=== PATIENT | male | born 1945 | race African-American/Black ===

== ENCOUNTER 2021-01-20 14:20 | Inpatient (IN) | payer OTHER, MEDICARE, SELFPAY ==
--- NOTE | ~2021-01-20 | CT_ITS ---
EXAMINATION: CT ABDOMEN AND PELVIS WITH CONTRAST CLINICAL INFORMATION: Upper abdominal pain, vomiting and constipation. COMPARISON: None TECHNIQUE: Multidetector volumetric images were obtained from the superior aspect of the liver through the pubic symphysis following administration 85 mL of Omnipaque 350 intravenous contrast. Sagittal and coronal reformatted images were obtained on the technologist's workstation. Oral contrast: No This CT examination was performed using dose optimization techniques as appropriate, variously including the following: *Automated exposure control *Adjustment of mA and/or kV according to patient size (this includes techniques or standardized protocols for targeted exams where dose is matched to indication/reason for exam; i.e. extremities or head) *Use of iterative reconstruction technique DLP: 274 mGy-cm FINDINGS: LUNG BASES: The lung bases are clear. The heart size is normal. LIVER, GALLBLADDER, AND BILIARY TREE: The liver is normal in size, shape, and diffusely attenuated. There is a 8 mm hypodensity segment 4A. No additional lesions seen. There is no intrahepatic ductal dilatation. Biliary ductal dilatation is present. The gallbladder is unremarkable with no evidence of radiopaque gallstones, gallbladder wall thickening, or obvious pericholecystic inflammatory changes. PANCREAS: There is a large cystic lesion with septations a multicystic lesion in the body of the pancreas. The lesion measures 5.9 x 3.5 cm on axial image 32/3 and 4.2 cm on sagittal Image 42/6 dilated pancreatic duct measuring 6 mm. There are small peripancreatic and retroperitoneal lymph nodes.. SPLEEN: Unremarkable. ADRENAL GLANDS: Unremarkable. KIDNEYS AND URETERS: The kidneys are normal in size, shape, and attenuation. No hydronephrosis, hydroureter, or calculi seen. No perinephric stranding. BLADDER: Unremarkable. GASTROINTESTINAL TRACT: There is scattered stool and gas seen throughout the colon without significant distention. The small bowel loops are normal caliber. Appendix is not visualized. No free air or free fluid seen. ABDOMINAL WALL: No significant hernia is appreciated. LYMPH NODES: There are small retroperitoneal and and periceliac artery lymph nodes measuring less than 5 mm in short axis. VASCULAR: There are atherosclerotic changes of abdominal aorta without aneurysmal dilatation. PELVIC VISCERA: The prostate gland is heterogeneous and significantly enlarged extending into the base of bladder. OSSEOUS STRUCTURES: The agent disc changes L2-L3 through L5-S1 disc levels with spondylosis is noted. There is vacuum disc phenomena L4-L5 and L5-S1 disc levels. No lytic lesion seen. CT/CT abdomen pelvis w con IMPRESSION: Large cystic lesion in the body the pancreas suspicious for a cystic pancreatic neoplasm. Differential diagnoses includes large pseudocyst if patient history of alcoholism. No ventral peripancreatic fluid seen. There is distal pancreatic ductal dilatation measuring 6 mm. There are small shotty lymph nodes in the retroperitoneum. Small hypodense liver lesion. Mild attenuation of liver likely hepatic steatosis.
[2021-01-20 14:23] VITALS: BP 138/84; PULSE 94; O2SAT 97
[2021-01-20 14:25] VITALS: BMI 21.6
[2021-01-20 14:36] VITALS: BP 140/82; PULSE 91; RESP 17; TEMP 37.4; O2SAT 99
--- NOTE | 2021-01-20 14:43 | ECG_ITS ---
Test Reason : ABDOMINAL PAIN Blood Pressure : / mmHG Vent. Rate : 080 BPM Atrial Rate : 080 BPM P-R Int : 156 ms QRS Dur : 070 ms QT Int : 374 ms P-R-T Axes : 077 053 076 degrees QTc Int : 431 ms Normal sinus rhythm with sinus arrhythmia Normal ECG When compared with ECG of 08-JAN-2020 11:58, Premature atrial complexes are no longer Present Vent. rate has decreased BY 45 BPM Referred By: Karen Casillas Electronically Signed By:LEYLA CALIX
--- NOTE | 2021-01-20 14:44 | ED.ABDPAIN ---
HPI - Abdominal Pain General Chief Complaint: Abdominal Pain Stated Complaint: abd pain Time Seen by Provider: 01/20/21 14:34 Source: EMS Mode of arrival: EMS Limitations: no limitations History of Present Illness HPI narrative: 75-year-old male with a past medical history of billroth surgery, s/p PUD w/ large bleeding ulcer 01/12/20 requiring cauterization (admit for hemorrhagic shock requiring transfusion/pressors) here with complaints of acute on chronic abdominal pain for 4 months. Patient tells me he has been able to eat very little. He has no appetite. He has lost 50 lb. He denies any vomiting. No fevers or chills. He has had some constipation. No diarrhea. No black or bloody stools. He lives alone and for the past 2 days he has been very weak and tired unable to care for himself. [facility] been [facility] to get an [facility]. He thinks about 6 months ago he was in a short-term rehab and was prescribed a stimulant which did improve his appetite he was able to gain about 20 lb. He does not have of this medication left. Related Data Home Medications Medication Instructions Recorded Confirmed No Known Home Meds 01/20/21 01/20/21 Allergies Allergy/AdvReac Type Severity Reaction Status Date / Time Penicillins [PENICILLINS] Allergy Intermediate SWELLING Unverified 02/25/20 17:41 lisinopril [LISINOPRIL] Allergy Unknown ANGIOEDEMA Unverified 02/25/20 17:41 Review of Systems Review of Systems Yes all other systems are reviewed and are negative Constitutional: Reports no additional constitutional complaints, Denies body ache(s), Denies chills, Denies fever(s), Denies headache(s), Reports weakness and Reports weight loss Eyes: Reports no additional eye complaints and Denies change in vision Reports system reviewed and no additional complaints, except as documented, Denies dizziness, Denies headache(s), Denies nasal congestion, Denies nasal discharge and Denies neck pain Cardiovascular: Reports no additional cardiovascular complaints, Denies chest pain, Denies leg edema and Denies dyspnea Respiratory: Reports no additional respiratory complaints, Denies cough and Denies dyspnea Gastrointestinal: Reports no additional gastrointestinal complaints, Reports abdominal pain, Denies diarrhea, Reports nausea and Denies vomiting Genitourinary: Denies urinary incontinence Musculoskeletal: Reports no additional musculoskeletal complaints, Denies back pain, Denies arthralgias, Denies joint swelling, Denies neck pain, Denies numbness and Denies tingling Skin/Breast: Reports system reviewed and no additional complaints, except as docu and Denies rash Reports system reviewed and no additional complaints, except as documented, Denies Abnormal speech present, Denies dizziness, Denies headache(s), Denies numbness, Denies tingling and Reports weakness Physical Exam Vital Signs: Vital Signs: Last Vital Signs Temp 98.7 F 01/20/21 19:07 Pulse 73 01/20/21 19:07 Resp 16 01/20/21 19:10 BP 132/83 01/20/21 19:07 Pulse Ox 98 01/20/21 19:07 Body Mass Index 21.6 Const: Other: patricia thin appearing, disheveled, in pain General: cooperative Orientation/consciousness: patient oriented x3 Limitations: no limitations HENMT: Head: Yes normal to inspection Ears: hearing grossly normal bilaterally General nose exam: Normal external nose present Face and sinus: Yes normal facial exam Mouth: Normal oral and palatal mucosa present Throat: Yes posterior oropharynx normal Eyes: General: appearance normal, both eyes and all related structures Pupils: Equal, round and reactive pupils present Neck: Neck: Yes normal visual inspection Chest: Chest palpation & inspection: normal inspection of the chest Resp: Effort & Inspection: normal respiratory effort Auscultation: clear to auscultation bilaterally Cardio: Rate: regular rate Rhythm: regular rhythm Peripheral pulses: Peripheral pulses 2+ throughout GI: Inspection: Yes normal to inspection Palpation (GI): Soft to palpation, Tenderness to palpation present (GI) in the epigastrum; Negative for with no rebound tenderness and no guarding Auscultation: normal bowel sounds Back/Spine/Pelvis: Thoracic/Lumbar Spine: thoracic and lumbar spine normal to inspection Skin: General skin exam: no rashes or lesions noted Neuro: General: patient oriented x3, moves all extremities, no focal motor deficits and normal sensation to monofilament Cranial nerves: Yes Equal, round and reactive pupils present Cognition (Neuro): normal cognition Speech: No Abnormal speech present Extrem: General: Yes normal to inspection Course Course Course Narrative: 75-year-old male here with complaints of acute on chronic abdominal pain for 4 months with weight loss and nausea and very poor p.o. intake now feeling very weak and unable to care for self at home. Will need labs, UA, EKG, CT 1930-CT shows Large cystic lesion in the body the pancreas suspicious for a cystic pancreatic neoplasm. Differential diagnoses includes large pseudocyst if patient history of alcoholism. No ventral peripancreatic fluid seen. There is distal pancreatic ductal dilatation measuring 6 mm. ? There are small shotty lymph nodes in the retroperitoneum. ? Small hypodense liver lesion. Mild attenuation of liver likely hepatic steatosis. Discussed patient with Dr. Matt from GI. The patient does have a former history of alcohol abuse. He tells me that for approximately 10 years he drained about 16 oz of beer daily. He has been sober for more than 1 year. She recommended adding on CEA, CA 19-9. Will consult on the patient. Discussed with Dr. Dueñas from Medicine who will admit the patient. MDM - Abdominal Pain Medical Records Attestation: I reviewed the patient's medical records. Lab Data Attestation: I reviewed the patient's lab results. Result diagrams: 01/20/21 15:43 01/20/21 15:43 Labs: Lab Results 01/20/21 01/20/21 01/20/21 Range/Units 15:42 15:43 15:43 WBC 12.5 H (4.8-10.8) X10*3/uL RBC 4.77 (4.60-5.80) X10*6/uL Hgb 14.3 (14.0-18.0) g/dl Hct 44.1 (42-52) % MCV 92.5 (80-98) fL MCH 30.0 (27.0-33.0) pg MCHC 32.4 (31.0-36.0) g/dl RDW 14.0 (11.0-16.0) % Plt Count 269 (160-400) X10*3/uL MPV 9.5 (9.4-12.4) fL Immature Gran % (Auto) 0.5 H (0.0-0.4) % Neut % (Auto) 86.5 H (45-73) % Lymph % (Auto) 7.3 L (20-40) % [place] % (Auto) 5.2 (2-11) % Eos % (Auto) 0.3 (0-4) % Baso % (Auto) 0.2 (0-2) % Lymph # (Auto) 0.9 L (1.2-4.9) X10*3/uL [place] # (Auto) 0.7 (0.1-1.2) X10*3/uL Eos # (Auto) 0.0 (0.0-0.4) X10*3/uL Baso # (Auto) 0.0 (0.0-0.2) X10*3/uL Abs Immat Gran (auto) 0.06 H (0.00-0.03) X10*3/uL Absolute Neuts (auto) 10.8 H (2.0-8.3) X10*3/uL Absolute Nucleated RBC 0.000 (0.0-0.012) X10*3/uL Nucleated RBC % (auto) 0.0 (0.0-0.2) /100WBC PT 11.9 (9.9-13.0) SEC INR 1.0 (0.9-1.1) Sodium (135-145) mmol/L Potassium (3.3-5.1) mmol/L Chloride (96-108) mmol/L Carbon Dioxide (22-29) mmol/L Anion Gap (12-20) BUN (9-16) mg/dL Creatinine (0.5-1.4) mg/dL Estim Creat Clear Calc Estimated GFR Random Glucose (60-115) mg/dL Lactic Acid 1.0 (0.5-2.0) mmol/L Calcium (8.4-10.2) mg/dL Magnesium (1.6-2.6) mg/dL Total Bilirubin (0.0-1.0) mg/dL Direct Bilirubin (0.0-0.5) mg/dL AST (5-37) U/L ALT (0-40) U/L Alkaline Phosphatase (39-117) U/L Total Creatine Kinase (38-174) U/L Troponin I High Sens (<3.5-35.0) ng/L Total Protein (6.5-8.0) g/dL Albumin (3.5-5.0) g/dL Lipase (8-78) U/L Urine Color Urine Appearance Urine pH (5.0-8.0) Ur Specific [place] (1.005-1.025) Urine Protein (NEG-TRACE) MG/DL Urine Glucose (UA) (NEG) MG/DL Urine Ketones (NEG) MG/DL Urine Blood (NEG) Urine Nitrite (NEG) Ur Leukocyte Esterase (NEG) 01/20/21 01/20/21 01/20/21 Range/Units 15:43 15:43 15:43 WBC (4.8-10.8) X10*3/uL RBC (4.60-5.80) X10*6/uL Hgb (14.0-18.0) g/dl Hct (42-52) % MCV (80-98) fL MCH (27.0-33.0) pg MCHC (31.0-36.0) g/dl RDW (11.0-16.0) % Plt Count (160-400) X10*3/uL MPV (9.4-12.4) fL Immature Gran % (Auto) (0.0-0.4) % Neut % (Auto) (45-73) % Lymph % (Auto) (20-40) % [place] % (Auto) (2-11) % Eos % (Auto) (0-4) % Baso % (Auto) (0-2) % Lymph # (Auto) (1.2-4.9) X10*3/uL [place] # (Auto) (0.1-1.2) X10*3/uL Eos # (Auto) (0.0-0.4) X10*3/uL Baso # (Auto) (0.0-0.2) X10*3/uL Abs Immat Gran (auto) (0.00-0.03) X10*3/uL Absolute Neuts (auto) (2.0-8.3) X10*3/uL Absolute Nucleated RBC (0.0-0.012) X10*3/uL Nucleated RBC % (auto) (0.0-0.2) /100WBC PT (9.9-13.0) SEC INR (0.9-1.1) Sodium 144 (135-145) mmol/L Potassium 3.6 (3.3-5.1) mmol/L Chloride 103 (96-108) mmol/L Carbon Dioxide 32 H (22-29) mmol/L Anion Gap 13 (12-20) BUN 8 L (9-16) mg/dL Creatinine 0.71 (0.5-1.4) mg/dL Estim Creat Clear Calc 89.3 Estimated GFR > 60 Random Glucose 104 (60-115) mg/dL Lactic Acid (0.5-2.0) mmol/L Calcium 8.8 (8.4-10.2) mg/dL Magnesium 2.1 (1.6-2.6) mg/dL Total Bilirubin 0.6 (0.0-1.0) mg/dL Direct Bilirubin 0.4 (0.0-0.5) mg/dL AST 11 (5-37) U/L ALT 9 (0-40) U/L Alkaline Phosphatase 151 H (39-117) U/L Total Creatine Kinase 22 L (38-174) U/L Troponin I High Sens 5.1 (<3.5-35.0) ng/L Total Protein 6.4 L (6.5-8.0) g/dL Albumin 3.3 L (3.5-5.0) g/dL Lipase < 4 L (8-78) U/L Urine Color Urine Appearance Urine pH (5.0-8.0) Ur Specific [place] (1.005-1.025) Urine Protein (NEG-TRACE) MG/DL Urine Glucose (UA) (NEG) MG/DL Urine Ketones (NEG) MG/DL Urine Blood (NEG) Urine Nitrite (NEG) Ur Leukocyte Esterase (NEG) 01/20/21 Range/Units 19:48 WBC (4.8-10.8) X10*3/uL RBC (4.60-5.80) X10*6/uL Hgb (14.0-18.0) g/dl Hct (42-52) % MCV (80-98) fL MCH (27.0-33.0) pg MCHC (31.0-36.0) g/dl RDW (11.0-16.0) % Plt Count (160-400) X10*3/uL MPV (9.4-12.4) fL Immature Gran % (Auto) (0.0-0.4) % Neut % (Auto) (45-73) % Lymph % (Auto) (20-40) % [place] % (Auto) (2-11) % Eos % (Auto) (0-4) % Baso % (Auto) (0-2) % Lymph # (Auto) (1.2-4.9) X10*3/uL [place] # (Auto) (0.1-1.2) X10*3/uL Eos # (Auto) (0.0-0.4) X10*3/uL Baso # (Auto) (0.0-0.2) X10*3/uL Abs Immat Gran (auto) (0.00-0.03) X10*3/uL Absolute Neuts (auto) (2.0-8.3) X10*3/uL Absolute Nucleated RBC (0.0-0.012) X10*3/uL Nucleated RBC % (auto) (0.0-0.2) /100WBC PT (9.9-13.0) SEC INR (0.9-1.1) Sodium (135-145) mmol/L Potassium (3.3-5.1) mmol/L Chloride (96-108) mmol/L Carbon Dioxide (22-29) mmol/L Anion Gap (12-20) BUN (9-16) mg/dL Creatinine (0.5-1.4) mg/dL Estim Creat Clear Calc Estimated GFR Random Glucose (60-115) mg/dL Lactic Acid (0.5-2.0) mmol/L Calcium (8.4-10.2) mg/dL Magnesium (1.6-2.6) mg/dL Total Bilirubin (0.0-1.0) mg/dL Direct Bilirubin (0.0-0.5) mg/dL AST (5-37) U/L ALT (0-40) U/L Alkaline Phosphatase (39-117) U/L Total Creatine Kinase (38-174) U/L Troponin I High Sens (<3.5-35.0) ng/L Total Protein (6.5-8.0) g/dL Albumin (3.5-5.0) g/dL Lipase (8-78) U/L Urine Color YELLOW Urine Appearance CLEAR Urine pH 7.0 (5.0-8.0) Ur Specific [place] <= 1.005 (1.005-1.025) Urine Protein TRACE (NEG-TRACE) MG/DL Urine Glucose (UA) NEG (NEG) MG/DL Urine Ketones NEG (NEG) MG/DL Urine Blood NEG (NEG) Urine Nitrite NEG (NEG) Ur Leukocyte Esterase NEG (NEG) Imaging Data CT scan - abdomen: Attestation: I personally reviewed and interpreted this imaging study as follows: Radiologist's impression: Large cystic lesion in the body the pancreas suspicious for a cystic pancreatic neoplasm. Differential diagnoses includes large pseudocyst if patient history of alcoholism. No ventral peripancreatic fluid seen. There is distal pancreatic ductal dilatation measuring 6 mm. ? There are small shotty lymph nodes in the retroperitoneum. ? Small hypodense liver lesion. Mild attenuation of liver likely hepatic steatosis. ECG Data Attestation: I personally reviewed and interpreted this ECG as follows: ECG interpretation date: 01/20/21 ECG interpretation time: 15:20 Interpretation: Normal sinus rhythm with a sinus arrhythmia with a rate of 80, normal AK, normal QRS, normal QT Discharge Plan Discharge Clinical Impression: Pancreatic mass Patient Disposition: Admitted As Inpatient Prescriptions: No Action No Known Home Meds RF: 0 PMFSH Past Medical History Attestation statement: The following information was validated with the patient. Source: old records reviewed and nursing notes reviewed Social History Social History Advance Directives: No Advance Directives Information Provided: No
[2021-01-20 15:11] VITALS: BP 140/88; PULSE 84; RESP 16; TEMP 37.1; O2SAT 99
[2021-01-20 15:55] LABS: MANUAL DIFF FLAG NO
[2021-01-20 15:57] LABS: Basophils Percent Auto 0.2 % (0-2); Eosinophils Percent Auto 0.3 % (0-4); Hematocrit 44.1 % (42-52); Hemoglobin 14.3 g/dl (14.0-18.0); Imm Gran Abs Auto 0.06 X10*3/uL (0.00-0.03); Imm Gran Pct Auto 0.5 % (0.0-0.4); Lymphocytes Absolute Auto 0.9 X10*3/uL (1.2-4.9); Lymphocytes Percent Auto 7.3 % (20-40); Mean Corpuscular HGB Conc 32.4 g/dl (31.0-36.0); Mean Corpuscular Volume 92.5 fL (80-98); Mean Platelet Volume 9.5 fL (9.4-12.4); Monocytes Absolute Auto 0.7 X10*3/uL (0.1-1.2); Monocytes Percent Auto 5.2 % (2-11); Neutrophils Absolute Auto 10.8 X10*3/uL (2.0-8.3); Neutrophils Percent Auto 86.5 % (45-73); Platelet Count 269 X10*3/uL (160-400); Red Blood Count 4.77 X10*6/uL (4.60-5.80); White Blood Count 12.5 X10*3/uL (4.8-10.8)
[2021-01-20 16:10] LABS: Prothrombin Time 11.9 SEC (9.9-13.0)
[2021-01-20 16:24] LABS: Alanine Aminotransferase 9 U/L (0-40); Albumin Level 3.3 g/dL (3.5-5.0); Alkaline Phosphatase 151 U/L (39-117); Anion Gap 13 (12-20); Aspartate Amino Transferase 11 U/L (5-37); Bilirubin Direct 0.4 mg/dL (0.0-0.5); Bilirubin Total 0.6 mg/dL (0.0-1.0); Blood Urea Nitrogen 8 mg/dL (9-16); Calcium 8.8 mg/dL (8.4-10.2); Carbon Dioxide 32 mmol/L (22-29); Chloride 103 mmol/L (96-108); Creatinine Clr Calc Pharmacy 89.3; Estimated Glomerular Filt Rate > 60; Glucose Random 104 mg/dL (60-115); Lipase < 4 U/L (8-78); Magnesium 2.1 mg/dL (1.6-2.6); Potassium 3.6 mmol/L (3.3-5.1); Sodium 144 mmol/L (135-145); Total Protein 6.4 g/dL (6.5-8.0)
[2021-01-20 16:26] LABS: Troponin-I High Sensitivity 5.1 ng/L (<3.5-35.0)
[2021-01-20 17:14] VITALS: BP 129/73; PULSE 77; RESP 16; O2SAT 98
[2021-01-20] MEDS: iohexoL 350 MG/ML 100 ML INFUS..BTL 85 ML IV (17:44)
[2021-01-20] MEDS: Morphine Sulfate 4 MG/ML CARTRIDGE IVPUSH (17:49)
[2021-01-20] MEDS: Famotidine/PF 20 MG/2 ML VIAL IVPUSH (17:49)
[2021-01-20 19:07] VITALS: BP 132/83; PULSE 73; RESP 16; TEMP 37.1; O2SAT 98
[2021-01-20 19:10] VITALS: RESP 16
[2021-01-20 20:06] LABS: Glucose Urine UA NEG (NEG); Leukocyte Esterase Urine NEG (NEG); Nitrite Urine NEG (NEG); Specific Gravity - Urine <= 1.005 (1.005-1.025); Urine Blood NEG (NEG); Urine Ketones NEG (NEG); Urine Protein TRACE MG/DL (NEG-TRACE)
[2021-01-20 20:09] LABS: Appearance Urine CLEAR; Color Urine YELLOW
[2021-01-20 21:41] LABS: COVID-19 Test Negative (Negative)
[2021-01-20] MEDS: Sucralfate 1 GM TABLET PO (22:52)
[2021-01-20] MEDS: Omeprazole 40 MG CAPSULE.DR PO (22:52)
[2021-01-20] MEDS: Mirtazapine 30 MG TABLET PO (22:53)
[2021-01-20] MEDS: Heparin Sodium,Porcine 5,000 UNIT/ML VIAL 5000 UNIT SUBCUT (22:53)
[2021-01-21] VITALS (7 sets, daily range): BP systolic 119–163; BP diastolic 68–87; PULSE 68–102; RESP 15–18; TEMP 35.9–37.6; O2SAT 98–100
[2021-01-21] MEDS: oxyCODONE HCl Immed Release 5 MG TABLET PO ×3 (02:24→15:26)
[2021-01-21] MEDS: 0.9 % Sodium Chloride Flush 3 ML SYRINGE IVFLUSH ×3 (02:28→15:27)
[2021-01-21 06:10] LABS: MANUAL DIFF FLAG NO
--- NOTE | 2021-01-21 06:30 | PM.IMHP ---
History of Present Illness Date of Service: 01/20/21 Chief Complaint: No appetite This is a 75-year-old male with no significant past medical history who presents to the hospital with complaints of persistent loss of appetite. Patient reports that he started having loss of appetite for the past 4 months and significant weight loss as a result. Patient reports that he was given appetite stimulant by his PCP, but they were becoming ineffective, he called to have it increase but he did not hear back from his doctor and therefore decided to come to the ED. Patient reports abdominal pain in the epigastric region, feels like tension, 5/10, intermittent, daily, radiating to the back, feels dizzy, also complaining of ED urinary urgency for many years with no changes now. He reports that he lost about 50 lb in the past 4 months but 30 lb in the past 1 month because he did not even have his appetite stimulant. He denies any fever or chills, he denies any chest pain, no shortness of breath, no nausea or vomiting, no diarrhea constipation, no numbness tingling and no lower extremity edema. On arrival to the ED hemodynamically stable with no significant abnormal vitals Labs on arrival are significant for WBC count of 12.5, alk-phos of 151, UA negative. Abdominal pelvic CT shows a large cystic lesion in the body of the pancreas suspicious for cystic pancreatic neoplasm. Differential can also include large pseudocyst. Patient does report history of alcohol abuse but has not drink for 1 month, reports that he was a daily drinker up until one year ago but is now drinks 2 to 3 times a week but stopped about 1 month ago due to the weird taste of alcohol. GI consult to patient will be admitted for further management evaluation Review of Systems Review of Systems: Yes all other systems are reviewed and are negative [facility] Medical History (Updated 01/21/21 @ 06:39 by Jeevan Dueñas MD) Alcohol abuse Hemorrhage of anastomosis due to ulcer Surgical History History of partial gastrectomy Social History Household Members: None Housing: Apartment Do you presently have visiting nurse or other home services: Yes (Saturday for 3 hours. visiting Aide) Patient Tobacco Use Status: Current everyday Tobacco user Tobacco use type: Cigarette Smoked in Last 30 Days: Yes Patient Interested in Nicotine Replacement: Yes Patient Given Instructions on How to Stop Smoking: Yes Date Education Initiated: 01/21/21 Second Hand Smoke Exposure: No Use of substances other than those prescribed or required for medical reasons: Yes Substance Use Type: Marijuana Currently Displaying Signs/Symptoms of Drug Intoxication Withdrawal: No Any prior treatment program specific to substance use: No Have you been hit, kicked, punched, or otherwise hurt by someone within the past year? If so, by whom?: No Do you feel safe in your current relationship?: Yes Is there a partner from a previous relationship who is making you feel unsafe now?: No Are you made to feel afraid or neglected: No Advance Directives: No Advance Directives Information Provided: No Do you have thoughts of harming others: None Do you have a plan to hurt others: No Plan Recently lost weight without trying: No Eating poorly because of decreased appetite: No Nutrition Risks: No Nutritional Risk Meds Allergies Allergy/AdvReac Type Severity Reaction Status Date / Time Penicillins [PENICILLINS] Allergy Intermediate SWELLING Unverified 02/25/20 17:41 lisinopril [LISINOPRIL] Allergy Unknown ANGIOEDEMA Unverified 02/25/20 17:41 Active Medications: Current Medications Generic Name Dose Route Start Last Admin Trade Name Lucie PRN Reason Stop Dose Admin Acetaminophen 650 mg 01/20/21 22:21 Acetaminophen 325 Mg Tablet PO Q6H PRN Pain, Mild (Pain Scale 1-3) Docusate Sodium 100 mg 01/20/21 22:21 Docusate Sodium 100 Mg Capsule PO DAILY PRN Constipation Folic Acid 1 mg 01/21/21 09:00 Folic Acid 1 Mg Tablet PO DAILY LELIA Heparin Sodium (Porcine) 5,000 unit 01/20/21 23:00 01/20/21 22:53 Heparin Sodium,Porcine 5,000 Unit/Ml Vial SUBCUT 5,000 unit Q12H LELIA Administration Mirtazapine 30 mg 01/20/21 22:45 01/20/21 22:53 Mirtazapine 30 Mg Tablet PO 30 mg BEDTIME LELIA Administration Omeprazole 40 mg 01/20/21 22:45 01/20/21 22:52 Omeprazole 40 Mg Capsule.Dr PO 40 mg BID LELIA Administration Ondansetron HCl 4 mg 01/20/21 22:21 Ondansetron Hcl 4 Mg/2 Ml Vial IVPUSH Q8H PRN Nausea and Vomiting Oxycodone HCl 5 mg 01/21/21 01:43 01/21/21 02:24 Oxycodone Hcl Immed Release 5 Mg Tablet PO 5 mg Q6H PRN Administration Pain, Severe (Pain Scale 7-10) Pharmacy Consult 1 each 01/20/21 18:37 Consult Rx Perform Med Rec MISCELLANE ONCE PRN Consult order Sodium Chloride 3 ml 01/21/21 00:00 01/21/21 02:28 0.9 % Sodium Chloride Flush 3 Ml Syringe IVFLUSH 3 ml QSHIFT [facility] Administration Sucralfate 1 gm 01/20/21 22:45 01/20/21 22:52 Sucralfate 1 Gm Tablet PO 1 gm QID [facility] Administration Thiamine HCl 100 mg 01/21/21 09:00 Thiamine Hcl 100 Mg Tablet PO DAILY [facility] Vitamin D 50 mcg 01/21/21 09:00 Cholecalciferol (Vitamin D3) 25 Mcg Tablet PO DAILY [facility] Home Medications Medication Instructions Recorded Confirmed Last Taken Type acetaminophen 500 mg tablet 1,000 mg PO TID 01/20/21 01/20/21 Unknown History cholecalciferol (vitamin D3) 50 50 mcg PO DAILY 01/20/21 01/20/21 Unknown History mcg (2,000 unit) tablet (Vitamin D3) folic acid 1 mg tablet 1 mg PO DAILY 01/20/21 01/20/21 Unknown History magnesium oxide 420 mg tablet 420 mg PO DAILY 01/20/21 01/20/21 Unknown History mirtazapine 30 mg tablet (Remeron) 30 mg PO BEDTIME 01/20/21 01/20/21 Unknown History nicotine 14 mg/24 hr daily 1 patch TRANSDERMAL DAILY 01/20/21 01/20/21 Unknown History transdermal patch omeprazole 20 mg tablet,delayed 40 mg PO BID 01/20/21 01/20/21 Unknown History release sucralfate 1 gram tablet 1 g PO QID 01/20/21 01/20/21 Unknown History thiamine HCl (vitamin B1) 100 mg 100 mg PO DAILY 01/20/21 01/20/21 Unknown History tablet Physical Exam Vital Signs and Narrative: Vital Signs: Last Vital Signs Temp 97.3 F 01/21/21 04:00 Pulse 78 01/21/21 04:00 Resp 15 01/21/21 04:00 BP 130/83 01/21/21 04:00 Pulse Ox 99 01/21/21 04:00 Body Mass Index 21.6 Results Labs CBC and Chem 7: 01/20/21 15:43 01/20/21 15:43 Labs: Laboratory Results - last 24 hr 01/20/21 01/20/21 01/20/21 15:42 15:43 15:43 MCV 92.5 MCH 30.0 MCHC 32.4 RDW 14.0 Plt Count 269 MPV 9.5 Immature Gran % (Auto) 0.5 H Neut % (Auto) 86.5 H Lymph % (Auto) 7.3 L [place] % (Auto) 5.2 Eos % (Auto) 0.3 Baso % (Auto) 0.2 Lymph # (Auto) 0.9 L [place] # (Auto) 0.7 Eos # (Auto) 0.0 Baso # (Auto) 0.0 Abs Immat Gran (auto) 0.06 H Absolute Neuts (auto) 10.8 H Absolute Nucleated RBC 0.000 Nucleated RBC % (auto) 0.0 PT 11.9 INR 1.0 Anion Gap Estim Creat Clear Calc Estimated GFR Random Glucose Lactic Acid 1.0 Calcium Magnesium Total Bilirubin Direct Bilirubin AST ALT Alkaline Phosphatase Total Creatine Kinase Troponin I High Sens Total Protein Albumin Lipase Urine Color Urine Appearance Urine pH Ur Specific [place] Urine Protein Urine Glucose (UA) Urine Ketones Urine Blood Urine Nitrite Ur Leukocyte Esterase COVID-19 ([facility]) COVID-19 Clin Com 01/20/21 01/20/21 01/20/21 15:43 15:43 15:43 MCV MCH MCHC RDW Plt Count MPV Immature Gran % (Auto) Neut % (Auto) Lymph % (Auto) [place] % (Auto) Eos % (Auto) Baso % (Auto) Lymph # (Auto) [place] # (Auto) Eos # (Auto) Baso # (Auto) Abs Immat Gran (auto) Absolute Neuts (auto) Absolute Nucleated RBC Nucleated RBC % (auto) PT INR Anion Gap 13 Estim Creat Clear Calc 89.3 Estimated GFR > 60 Random Glucose 104 Lactic Acid Calcium 8.8 Magnesium 2.1 Total Bilirubin 0.6 Direct Bilirubin 0.4 AST 11 ALT 9 Alkaline Phosphatase 151 H Total Creatine Kinase 22 L Troponin I High Sens 5.1 Total Protein 6.4 L Albumin 3.3 L Lipase < 4 L Urine Color Urine Appearance Urine pH Ur Specific [place] Urine Protein Urine Glucose (UA) Urine Ketones Urine Blood Urine Nitrite Ur Leukocyte Esterase COVID-19 ([facility]) COVID-19 Clin Com 01/20/21 01/20/21 19:48 21:22 MCV MCH MCHC RDW Plt Count MPV Immature Gran % (Auto) Neut % (Auto) Lymph % (Auto) [place] % (Auto) Eos % (Auto) Baso % (Auto) Lymph # (Auto) [place] # (Auto) Eos # (Auto) Baso # (Auto) Abs Immat Gran (auto) Absolute Neuts (auto) Absolute Nucleated RBC Nucleated RBC % (auto) PT INR Anion Gap Estim Creat Clear Calc Estimated GFR Random Glucose Lactic Acid Calcium Magnesium Total Bilirubin Direct Bilirubin AST ALT Alkaline Phosphatase Total Creatine Kinase Troponin I High Sens Total Protein Albumin Lipase Urine Color YELLOW Urine Appearance CLEAR Urine pH 7.0 Ur Specific [place] <= 1.005 Urine Protein TRACE Urine Glucose (UA) NEG Urine Ketones NEG Urine Blood NEG Urine Nitrite NEG Ur Leukocyte Esterase NEG COVID-19 ([facility]) Negative COVID-19 Clin Com See Note ECG Interpretation: Normal sinus rhythm with sinus arrhythmia Imaging Radiologist's Impressions: Impressions Abdomen/Pelvis CT 01/20/21 16:38 IMPRESSION: Large cystic lesion in the body the pancreas suspicious for a cystic pancreatic neoplasm. Differential diagnoses includes large pseudocyst if patient history of alcoholism. No ventral peripancreatic fluid seen. There is distal pancreatic ductal dilatation measuring 6 mm. There are small shotty lymph nodes in the retroperitoneum. Small hypodense liver lesion. Mild attenuation of liver likely hepatic steatosis. 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 # leukocytosis - most likely reactive - patient afebrile, no tachycardia or tachypnea showing other signs of systemic toxicity - unlikely to have pseudocyst - at this time monitor with repeat CBC DVT prophylaxis: Heparin subQ Quality Stroke Does the patient have a stroke diagnosis?: No VTE Prior VTE?: No VTE Risk Level:: Medical - moderate - high VTE Device Contraindication: Treatment Not Indicated VTE Drug Contraindication: N/A - Med Ordered
[2021-01-21 06:51] LABS: Basophils Percent Auto 0.3 % (0-2); Eosinophils Absolute Auto 0.1 X10*3/uL (0.0-0.4); Eosinophils Percent Auto 0.5 % (0-4); Hematocrit 41.7 % (42-52); Hemoglobin 13.4 g/dl (14.0-18.0); Imm Gran Abs Auto 0.07 X10*3/uL (0.00-0.03); Imm Gran Pct Auto 0.5 % (0.0-0.4); Lymphocytes Percent Auto 7.4 % (20-40); Mean Corpuscular HGB Conc 32.1 g/dl (31.0-36.0); Mean Corpuscular Hemoglobin 29.8 pg (27.0-33.0); Mean Corpuscular Volume 92.9 fL (80-98); Monocytes Percent Auto 7.4 % (2-11); Neutrophils Absolute Auto 11.1 X10*3/uL (2.0-8.3); Neutrophils Percent Auto 83.9 % (45-73); Platelet Count 268 X10*3/uL (160-400); Red Blood Count 4.49 X10*6/uL (4.60-5.80); Red Cell Distribution Width 13.9 % (11.0-16.0); White Blood Count 13.2 X10*3/uL (4.8-10.8)
[2021-01-21 06:54] LABS: Anion Gap 17 (12-20); Blood Urea Nitrogen 7 mg/dL (9-16); Calcium 8.4 mg/dL (8.4-10.2); Carbon Dioxide 27 mmol/L (22-29); Chloride 104 mmol/L (96-108); Creatinine Clr Calc Pharmacy 96.1; Estimated Glomerular Filt Rate > 60; Glucose Random 73 mg/dL (60-115); Potassium 3.9 mmol/L (3.3-5.1); Sodium 144 mmol/L (135-145)
[2021-01-21] MEDS: Folic Acid 1 MG TABLET PO (09:12)
[2021-01-21] MEDS: Sucralfate 1 GM TABLET PO ×4 (09:12→20:27)
[2021-01-21] MEDS: Cholecalciferol (Vitamin D3) 25 MCG TABLET 50 MCG PO (09:13)
[2021-01-21] MEDS: Omeprazole 40 MG CAPSULE.DR PO ×2 (09:13→20:27)
[2021-01-21] MEDS: Thiamine HCL 100 MG TABLET PO (09:14)
--- NOTE | 2021-01-21 09:25 | MHC.CM.PN ---
Addendum entered by Margarita Dumas 01/21/21 14:40: CM CONTACTED THE MD TO [facility] TO [facility]. AFTER PTS INFORMATION WAS PROVIDED, CM WAS INFORMED PT IS NOT SERVICE CONNECTED ORIGINALLY UNDERSTOOD. PT DOES USE THE [facility] HOWEVER. PT WOULD NEED TO BE TRANSFERRED USING HIS MEDICARE BENEFITS. Original Note: CM MET WITH PT WHO REPORTS HE LIVES ALONE AND HAS A LEAD GENERATION REPRESENTATIVE THAT COMES EVERY SATURDAY FOR THREE HOURS TO ASSIST WITH LIGHT HOUSEKEEPING, GROCERY SHOPPING, GOING TO THE BANK AND SOME COOKING. PT REPORTS HE HAS A CANE AND A WALKER BUT PRIMARILY USES THE CANE. PT REPORTS HE SEES DR GILMORE AT THE [facility] HOWEVER HE DOES NOT THINK SHE IS TAKING ADEQUATE CARE OF HIM. HE REPORTS HAVING DIFFICULTY REACHING HER SAYING SHE NEVER RETURNS HIS CALLS. PT REPORTS HE HAS BEEN HAVING DIFFICULTY EATING AND HAS BEEN FEELING WEAK. PT REPORTS HE WOULD LIKE TO GO TO STR AT [facility] AT [place]. PT ONLY HAS [employer] LISTED FOR INSURANCE HOWEVER HE REPORTS HE ALSO HAS MEDICARE A. IMM WAS DELIVERED CM WILL MAKE A REFERRAL TO [facility] FOR STR. PT WILL NEED A PT EVAL. TRANSPORT TBD BY DISPOSITION.
--- NOTE | 2021-01-21 10:31 | P.CNGI_ITS ---
History of Present Illness Data of Consult Service Date: 01/21/21 Requesting physician: Jeevan Dueñas Primary Care Provider: Unknown Physician HPI Reason for consult: abd pain, wt loss, abnormal CT scan of pancreas 75 YM [place] [facility] [place] evening with abdominal pain and weight loss. He is followed by Dr Aguero at the [facility] in [place] and [place]. Patient is status post partial gastrectomy for peptic ulcer disease 40 years ago. Pt reports a lack of appetite with wt loss over the past 4 months from 155 to < 100 lbs. He complains of intermittent weakness, dizziness, 5/10 epigastric pain radiating to the back - pain is intermittent and associated with intake of food, orange juice or Hilario-Aid. Patient reports that he was given appetite stimulant by his PCP, but they were becoming ineffective, he called to have it increase but he did not hear back from his doctor and therefore decided to come to the ED.? He reports that he lost about 50 lb in the past 4 months but 30 lb in the past 1 month because he did not have his appetite stimulant. He denies any fever or chills, he denies any chest pain, no shortness of breath, no nausea or vomiting, no diarrhea constipation, no numbness tingling and no lower extremity edema. Patient denies major cardiac or pulmonary problems, loud snoring or sleep apnea Denies being on aspirin or chronic anticoagulation. Patient does report history of heavy alcohol abuse (6 pack of beer daily) and decreased to 1 beer a day for the past few months, and stopped about 1 month ago due to the weird taste of alcohol. Patient denies known family history of colon polyps, colon cancer or other GI malignancies. His sister has breast cancer. 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 and planning to move there in the near future. He has a child care development specialist coming once a week for 3 hrs. He is ( x 3) and has 3 children and 7 grandchildren who live in [place]. ENDOSCOPIC STUDIES: 12/2019 EGD was performed by Dr. Donaldson for upper GI bleeding: EGD showed an anastomotic ulcer and a small hiatal hernia. Ulcer was treated with epinephrine and cauterization with gold probe. Pt reports having an EGD and a Colonoscopy at [facility] within the last 1-2 yrs. On arrival to the ED hemodynamically stable with no significant abnormal vitals Labs on arrival are significant for WBC count of 12.5, alk-phos of 151, UA negative IMAGING STUDIES: 01/20/[address] SCAN SHOWED: LIVER, GALLBLADDER, AND BILIARY TREE: The liver is normal in size, shape, and diffusely attenuated. There is a 8 mm hypodensity segment 4A. No additional lesions seen. There is no intrahepatic ductal dilatation. Biliary ductal dilatation is present. The gallbladder is unremarkable with no evidence of radiopaque gallstones, gallbladder wall thickening, or obvious pericholecystic inflammatory changes.? PANCREAS: There is a large cystic lesion with septations a multicystic lesion in the body of the pancreas. The lesion measures 5.9 x 3.5 cm on axial image 32/3 and 4.2 cm on sagittal Image 42/6 dilated pancreatic duct measuring 6 mm. There are small peripancreatic and retroperitoneal lymph nodes.. GASTROINTESTINAL TRACT: There is scattered stool and gas seen throughout the colon without significant distention. The small bowel loops are normal caliber. Appendix is not visualized. No free air or free fluid seen. LYMPH NODES: There are small retroperitoneal and and periceliac artery lymph nodes measuring less than 5 mm in short axis. IMPRESSION: Large cystic lesion in the body the pancreas suspicious for a cystic pancreatic neoplasm. Differential diagnoses includes large pseudocyst if patient history of alcoholism. No ventral peripancreatic fluid seen. There is distal pancreatic ductal dilatation measuring 6 mm. ? There are small shotty lymph nodes in the retroperitoneum. ? Small hypodense liver lesion. Mild attenuation of liver likely hepatic steatosis. ? Review of Systems Constitutional: Constitutional: Denies fever(s), Denies headache(s) and Reports weight loss Eyes: Eyes: Denies eye discharge and Denies irritation ENT: Reports Normal hearing present, Denies dysphagia, Denies dizziness and Denies headache(s) Cardiovascular: Cardiovascular: Denies chest pain, Denies leg edema and Denies dyspnea on exertion Respiratory: Respiratory: Denies cough and Denies dyspnea on exertion Gastrointestinal: Gastrointestinal: Reports abdominal pain, Denies change in bowel habits, Denies dysphagia, Denies heartburn and Reports other (Decreased appetite) Genitourinary: Genitourinary: Denies dysuria Musculoskeletal: Musculoskeletal: Denies back pain and Denies arthralgias Integumentary/Breasts: Skin/Breast: Denies pruritus, Denies rash and Denies jaundice Neurologic: Reports Normal hearing present, Denies Abnormal speech present, Denies dizziness, Denies headache(s) and Denies seizure-like activity Psychiatric: Psychiatric: Reports anxiety, Reports depression and Denies panic attacks Endocrine: Endocrine: Denies cold intolerance, Denies flushing and Denies heat intolerance Hematologic/Lymphatic: Hematologic/Lymphatic: Denies easy bleeding and Denies easy bruising PMFSH Past Medical History Medical History Alcohol abuse Hemorrhage of anastomosis due to ulcer Surgical History Surgical History History of partial gastrectomy Social History Social History Household Members: Caregiver Housing: Alf Do you presently have visiting nurse or other home services: No Unable to assess alcohol history related to: Unable to respond Patient Tobacco Use Status: Current everyday Tobacco user Tobacco use type: Cigarette Second Hand Smoke Exposure: No Substance Use Type: Marijuana Advance Directives Date on File: 02/01/21 service: Yes Current occupational status: retired [employer] Allergies Allergy/AdvReac Type Severity Reaction Status Date / Time Penicillins [PENICILLINS] Allergy Intermediate SWELLING Verified 02/12/21 06:34 lisinopril [LISINOPRIL] Allergy Unknown ANGIOEDEMA Verified 02/12/21 06:34 Active Medications: Current Medications Generic Name Dose Route Start Last Admin Trade Name Freq PRN Reason Stop Dose Admin Acetaminophen 650 mg 01/20/21 22:21 Acetaminophen 325 Mg Tablet PO Q6H PRN Pain, Mild (Pain Scale 1-3) Docusate Sodium 100 mg 01/20/21 22:21 Docusate Sodium 100 Mg Capsule PO DAILY PRN Constipation Folic Acid 1 mg 01/21/21 09:00 01/21/21 09:12 Folic Acid 1 Mg Tablet PO 1 mg DAILY LELIA Administration Heparin Sodium (Porcine) 5,000 unit 01/20/21 23:00 01/20/21 22:53 Heparin Sodium,Porcine 5,000 Unit/Ml Vial SUBCUT 5,000 unit Q12H LELIA Administration Mirtazapine 30 mg 01/20/21 22:45 01/20/21 22:53 Mirtazapine 30 Mg Tablet PO 30 mg BEDTIME LELIA Administration Omeprazole 40 mg 01/20/21 22:45 01/21/21 09:13 Omeprazole 40 Mg Capsule. PO 40 mg BID LELIA Administration Ondansetron HCl 4 mg 01/20/21 22:21 Ondansetron Hcl 4 Mg/2 Ml Vial IVPUSH Q8H PRN Nausea and Vomiting Oxycodone HCl 5 mg 01/21/21 01:43 01/21/21 09:12 Oxycodone Hcl Immed Release 5 Mg Tablet PO 5 mg Q6H PRN Administration Pain, Severe (Pain Scale 7-10) Pharmacy Consult 1 each 01/20/21 18:37 Consult Rx Perform Med Rec MISCELLANE ONCE PRN Consult order Sodium Chloride 3 ml 01/21/21 00:00 01/21/21 09:12 0.9 % Sodium Chloride Flush 3 Ml Syringe IVFLUSH 3 ml QSHIFT [facility] Administration Sucralfate 1 gm 01/20/21 22:45 01/21/21 09:12 Sucralfate 1 Gm Tablet PO 1 gm QID [facility] Administration Thiamine HCl 100 mg 01/21/21 09:00 01/21/21 09:14 Thiamine Hcl 100 Mg Tablet PO 100 mg DAILY [facility] Administration Vitamin D 50 mcg 01/21/21 09:00 01/21/21 09:13 Cholecalciferol (Vitamin D3) 25 Mcg Tablet PO 50 mcg DAILY [facility] Administration Home Medications Medication Instructions Recorded Confirmed Last Taken Type acetaminophen 500 mg tablet 1,000 mg PO TID 01/20/21 01/30/21 Unknown History cholecalciferol (vitamin D3) 50 50 mcg PO DAILY 01/20/21 01/30/21 Unknown History mcg (2,000 unit) tablet (Vitamin D3) folic acid 1 mg tablet 1 mg PO DAILY 01/20/21 01/30/21 Unknown History magnesium oxide 420 mg tablet 420 mg PO DAILY 01/20/21 01/30/21 Unknown History mirtazapine 30 mg tablet (Remeron) 30 mg PO BEDTIME 01/20/21 01/30/21 Unknown History nicotine 14 mg/24 hr daily 1 patch TRANSDERMAL DAILY 01/20/21 01/30/21 Unknown History transdermal patch omeprazole 20 mg tablet,delayed 40 mg PO BID 01/20/21 01/30/21 Unknown History release sucralfate 1 gram tablet 1 g PO QID 01/20/21 01/30/21 Unknown History thiamine HCl (vitamin B1) 100 mg 100 mg PO DAILY 01/20/21 01/30/21 Unknown History tablet Physical Exam Vital Signs: Vital Signs: Last Vital Signs Temp 97.9 F 01/21/21 08:00 Pulse 68 01/21/21 08:00 Resp 18 01/21/21 08:00 BP 138/75 01/21/21 08:00 Pulse Ox 100 01/21/21 08:00 Body Mass Index 21.6 Const: General: no acute distress and ill appearing Nutritional Appearance: cachectic and malnourished Orientation/consciousness: patient oriented x3 Limitations: no limitations HENMT: Head: Yes normal to inspection Ears: hearing grossly normal bilaterally Mouth: Normal oral and palatal mucosa present Eyes: Sclerae: sclerae normal Pupils: Equal, round and reactive pupils present Neck: Neck: Yes normal visual inspection Chest: Chest palpation & inspection: normal inspection of the chest Resp: Effort & Inspection: normal respiratory effort Auscultation: clear to auscultation bilaterally Cardio: Palpation: normal PMI Rate: regular rate Rhythm: regular rhythm Heart sounds: S1 normal heart sound present, S2 normal heart sound present and no murmurs GI: Palpation (GI): Soft to palpation, Tenderness to palpation present (GI) (mild epigastric tenderness) and No hepatosplenomegaly present Auscultation: normal bowel sounds Rectal Exam - Male: Yes deferred Skin: General skin exam: no rashes or lesions noted Neuro: General: patient oriented x3, gait normal and moves all extremities Cranial nerves: Yes Equal, round and reactive pupils present and Yes Normal hearing present Speech: No Abnormal speech present Psych: Appearance: grossly normal Mental Status: mental status grossly normal Results Labs CBC & Chem 7: 01/23/21 16:03 01/25/21 06:10 Labs: Short CBC 01/20/21 01/21/21 Range/Units 15:43 05:49 WBC 12.5 H 13.2 H (4.8-10.8) X10*3/uL Hgb 14.3 13.4 L (14.0-18.0) g/dl Hct 44.1 41.7 L (42-52) % Plt Count 269 268 (160-400) X10*3/uL BMP 01/20/21 01/21/21 15:43 05:49 Sodium 144 144 Potassium 3.6 3.9 Chloride 103 104 Carbon Dioxide 32 H 27 BUN 8 L 7 L Creatinine 0.71 0.66 Calcium 8.8 8.4 Cardiac Enzymes 01/20/21 Range/Units 15:43 Total Creatine Kinase 22 L (38-174) U/L Liver Function 01/20/21 Range/Units 15:43 Total Bilirubin 0.6 (0.0-1.0) mg/dL Direct Bilirubin 0.4 (0.0-0.5) mg/dL AST 11 (5-37) U/L ALT 9 (0-40) U/L Alkaline Phosphatase 151 H (39-117) U/L Albumin 3.3 L (3.5-5.0) g/dL Urine 01/20/21 Range/Units 19:48 Urine Color YELLOW Urine Appearance CLEAR Urine pH 7.0 (5.0-8.0) Ur Specific Adona <= 1.005 (1.005-1.025) Urine Protein TRACE (NEG-TRACE) MG/DL Urine Glucose (UA) NEG (NEG) MG/DL Assessment and Plan (1) Cystic mass of pancreas: Status: Acute (2) Weight loss: Status: Acute (3) Epigastric pain: Status: Acute (4) Decreased appetite: Status: Acute 75 year old AA male with past ETOH abuse admitted with poor appetite, epigastric pain and wt loss of > 50 lbs. Pt is status post partial gastrectomy for PUD and his course has been complicated by an anastomotic ulcer with GI bleeding a year ago. Abd CT scan showed a large cystic lesion in the body the pancreas suspicious for a cystic pancreatic neoplasm. Differential diagnoses includes large pseudocyst There is distal pancreatic ductal dilatation measuring 6 mm. Lipase was low, CEA was normal and CA 19-9 is pending. RECOMMENDATIONS: 1. Continue PPI 2. Further evaluation with EUS and aspiration/bx of pancreatic lesion - needs transfer to [facility], [facility] [place]. It would be helpful to obtain records from [facility] (especially previous abd CT scan for comparison) Procedures Date of Service Date of Service: 01/21/21
[2021-01-21] MEDS: Nicotine 21 MG PATCH.TD24 TRANSDERMA (12:11)
[2021-01-21] MEDS: Heparin Sodium,Porcine 5,000 UNIT/ML VIAL 5000 UNIT SUBCUT (12:11)
--- NOTE | 2021-01-21 15:08 | HO.PM.IMPN ---
Subjective Subjective Date of Service: 01/21/21 Interval History: Mod-sev epigastric pain Poor appetite Lost 30 lb/1 mo Review of Systems Review of Systems: Yes all other systems are reviewed and are negative Physical Exam Vital Signs: Vital Signs: Last Vital Signs Temp 97.8 F 01/21/21 12:00 Pulse 102 H 01/21/21 12:00 Resp 18 01/21/21 12:00 BP 136/77 01/21/21 12:00 Pulse Ox 100 01/21/21 12:00 Body Mass Index 21.6 Gen: cachectic HEENT: sclera anicteric, moist mucus membranes Neck: supple Lungs: clear to auscultation bilaterally Heart: regular rate and rhythm, no murmurs Abd: soft, tender periumbilical and epigastric, no HSM Ext: no edema Skin: warm/well-perfused Neuro: alert and oriented x3, no focal findings Psych: appropriate affect Objective Data Current Medications Generic Name Dose Route Start Last Admin Trade Name Freq PRN Reason Stop Dose Admin Acetaminophen 650 mg 01/20/21 22:21 Acetaminophen 325 Mg Tablet PO Q6H PRN Pain, Mild (Pain Scale 1-3) Docusate Sodium 100 mg 01/20/21 22:21 Docusate Sodium 100 Mg Capsule PO DAILY PRN Constipation Folic Acid 1 mg 01/21/21 09:00 01/21/21 09:12 Folic Acid 1 Mg Tablet PO 1 mg DAILY LELIA Administration Heparin Sodium (Porcine) 5,000 unit 01/20/21 23:00 01/21/21 12:11 Heparin Sodium,Porcine 5,000 Unit/Ml Vial SUBCUT 5,000 unit Q12H LELIA Administration Mirtazapine 30 mg 01/20/21 22:45 01/20/21 22:53 Mirtazapine 30 Mg Tablet PO 30 mg BEDTIME LELIA Administration Nicotine 21 mg 01/21/21 11:15 01/21/21 12:11 Nicotine 21 Mg Patch.Td24 TRANSDERMA 21 mg DAILY LELIA Administration Omeprazole 40 mg 01/20/21 22:45 01/21/21 09:13 Omeprazole 40 Mg Capsule.Dr PO 40 mg BID LELIA Administration Ondansetron HCl 4 mg 01/20/21 22:21 Ondansetron Hcl 4 Mg/2 Ml Vial IVPUSH Q8H PRN Nausea and Vomiting Oxycodone HCl 5 mg 01/21/21 01:43 01/21/21 09:12 Oxycodone Hcl Immed Release 5 Mg Tablet PO 5 mg Q6H PRN Administration Pain, Severe (Pain Scale 7-10) Pharmacy Consult 1 each 01/20/21 18:37 Consult Rx Perform Med Rec MISCELLANE ONCE PRN Consult order Sodium Chloride 3 ml 01/21/21 00:00 01/21/21 09:12 0.9 % Sodium Chloride Flush 3 Ml Syringe IVFLUSH 3 ml QSHIFT LELIA Administration Sucralfate 1 gm 01/20/21 22:45 01/21/21 12:11 Sucralfate 1 Gm Tablet PO 1 gm QID LELIA Administration Thiamine HCl 100 mg 01/21/21 09:00 01/21/21 09:14 Thiamine Hcl 100 Mg Tablet PO 100 mg DAILY LELIA Administration Vitamin D 50 mcg 01/21/21 09:00 01/21/21 09:13 Cholecalciferol (Vitamin D3) 25 Mcg Tablet PO 50 mcg DAILY LELIA Administration Zinc Acetate/Diphenhydramine 1 appl 01/21/21 12:42 Diphenhydramine Hcl 2 % Cream 28 Gm Tube TOPICAL QID PRN itching Protocol Labs CBC & Chem 7: 01/21/21 05:49 01/21/21 05:49 Labs: Laboratory Results - last 24 hr 01/20/21 01/20/21 01/20/21 15:42 15:43 15:43 MCV 92.5 MCH 30.0 MCHC 32.4 RDW 14.0 Plt Count 269 MPV 9.5 Immature Gran % (Auto) 0.5 H Neut % (Auto) 86.5 H Lymph % (Auto) 7.3 L Christian % (Auto) 5.2 Eos % (Auto) 0.3 Baso % (Auto) 0.2 Lymph # (Auto) 0.9 L Christian # (Auto) 0.7 Eos # (Auto) 0.0 Baso # (Auto) 0.0 Abs Immat Gran (auto) 0.06 H Absolute Neuts (auto) 10.8 H Absolute Nucleated RBC 0.000 Nucleated RBC % (auto) 0.0 PT 11.9 INR 1.0 Anion Gap Estim Creat Clear Calc Estimated GFR Random Glucose Lactic Acid 1.0 Calcium Magnesium Total Bilirubin Direct Bilirubin AST ALT Alkaline Phosphatase Total Creatine Kinase Troponin I High Sens Total Protein Albumin Lipase Carcinoembryonic Ag Urine Color Urine Appearance Urine pH Ur Specific Laurier Urine Protein Urine Glucose (UA) Urine Ketones Urine Blood Urine Nitrite Ur Leukocyte Esterase COVID-19 ([facility]) COVID-19 [employer] 01/20/21 01/20/21 01/20/21 15:43 15:43 15:43 MCV MCH MCHC RDW Plt Count MPV Immature Gran % (Auto) Neut % (Auto) Lymph % (Auto) Christian % (Auto) Eos % (Auto) Baso % (Auto) Lymph # (Auto) Christian # (Auto) Eos # (Auto) Baso # (Auto) Abs Immat Gran (auto) Absolute Neuts (auto) Absolute Nucleated RBC Nucleated RBC % (auto) PT INR Anion Gap 13 Estim Creat Clear Calc 89.3 Estimated GFR > 60 Random Glucose 104 Lactic Acid Calcium 8.8 Magnesium 2.1 Total Bilirubin 0.6 Direct Bilirubin 0.4 AST 11 ALT 9 Alkaline Phosphatase 151 H Total Creatine Kinase 22 L Troponin I High Sens 5.1 Total Protein 6.4 L Albumin 3.3 L Lipase < 4 L Carcinoembryonic Ag Urine Color Urine Appearance Urine pH Ur Specific [place] Urine Protein Urine Glucose (UA) Urine Ketones Urine Blood Urine Nitrite Ur Leukocyte Esterase COVID-19 ([facility]) COVID-19 [employer] 01/20/21 01/20/21 01/21/21 19:48 21:22 05:49 MCV 92.9 MCH 29.8 MCHC 32.1 RDW 13.9 Plt Count 268 MPV 10.0 Immature Gran % (Auto) 0.5 H Neut % (Auto) 83.9 H Lymph % (Auto) 7.4 L Christian % (Auto) 7.4 Eos % (Auto) 0.5 Baso % (Auto) 0.3 Lymph # (Auto) 1.0 L Christian # (Auto) 1.0 Eos # (Auto) 0.1 Baso # (Auto) 0.0 Abs Immat Gran (auto) 0.07 H Absolute Neuts (auto) 11.1 H Absolute Nucleated RBC 0.000 Nucleated RBC % (auto) 0.0 PT INR Anion Gap Estim Creat Clear Calc Estimated GFR Random Glucose Lactic Acid Calcium Magnesium Total Bilirubin Direct Bilirubin AST ALT Alkaline Phosphatase Total Creatine Kinase Troponin I High Sens Total Protein Albumin Lipase Carcinoembryonic Ag Urine Color YELLOW Urine Appearance CLEAR Urine pH 7.0 Ur Specific Laurier <= 1.005 Urine Protein TRACE Urine Glucose (UA) NEG Urine Ketones NEG Urine Blood NEG Urine Nitrite NEG Ur Leukocyte Esterase NEG COVID-19 ([facility]) Negative COVID-19 Clin Com See Note 01/21/21 05:49 MCV MCH MCHC RDW Plt Count MPV Immature Gran % (Auto) Neut % (Auto) Lymph % (Auto) Christian % (Auto) Eos % (Auto) Baso % (Auto) Lymph # (Auto) Christian # (Auto) Eos # (Auto) Baso # (Auto) Abs Immat Gran (auto) Absolute Neuts (auto) Absolute Nucleated RBC Nucleated RBC % (auto) PT INR Anion Gap 17 Estim Creat Clear Calc 96.1 Estimated GFR > 60 Random Glucose 73 Lactic Acid Calcium 8.4 Magnesium Total Bilirubin Direct Bilirubin AST ALT Alkaline Phosphatase Total Creatine Kinase Troponin I High Sens Total Protein Albumin Lipase Carcinoembryonic Ag 2.30 Urine Color Urine Appearance Urine pH Ur Specific [place] Urine Protein Urine Glucose (UA) Urine Ketones Urine Blood Urine Nitrite Ur Leukocyte Esterase COVID-19 ([facility]) COVID-19 Clin Com Assessment and Plan (1) Cystic mass of pancreas: Status: Acute Assessment and Plan: hospital d#2 75yo M with hx perforated stomach ulcer s/p partial gastrectomy presenting with weight loss and abd pain, found to have 6 cm multicystic, septated pancreatic lesion with distal pancreatic duct dilation up to 6 mm # cystic pancreatic neoplasm - needs EUS/FNA per GI. attempted to transfer to [facility] + [facility] + [facility] [facility] but no beds available at this time- they recommended we try again later as beds may open up. 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
[2021-01-21] MEDS: Mirtazapine 30 MG TABLET PO (20:27)
[2021-01-22] MEDS: Heparin Sodium,Porcine 5,000 UNIT/ML VIAL 5000 UNIT SUBCUT ×2 (00:24→12:46)
[2021-01-22] MEDS: 0.9 % Sodium Chloride Flush 3 ML SYRINGE IVFLUSH ×3 (01:23→17:10)
[2021-01-22] MEDS: oxyCODONE HCl Immed Release 5 MG TABLET PO ×4 (01:27→20:20)
[2021-01-22 03:23] VITALS: BP 135/80; PULSE 87; RESP 18; TEMP 36.4; O2SAT 98
[2021-01-22 07:36] VITALS: BP 136/65; PULSE 67; RESP 16; TEMP 36.1; O2SAT 99
[2021-01-22] MEDS: Folic Acid 1 MG TABLET PO (08:05)
[2021-01-22] MEDS: Sucralfate 1 GM TABLET PO ×4 (08:05→20:20)
[2021-01-22] MEDS: Cholecalciferol (Vitamin D3) 25 MCG TABLET 50 MCG PO (08:05)
--- NOTE | 2021-01-22 08:05 | P.PNIM_ITS ---
Subjective Subjective Date of Service: 01/22/21 Interval History: some epigastric pain Poor appetite Lost 30 lb/1 mo Review of Systems Gen: no fever Resp: no sob, no cough CV: no chest, no SMITH, no leg edema GI: No n/v, no abd pain Neuro: No confusion Physical Exam Vital Signs: Vital Signs: Last Vital Signs Temp 97.0 F 01/22/21 07:36 Pulse 67 01/22/21 07:36 Resp 16 01/22/21 07:36 BP 136/65 01/22/21 07:36 Pulse Ox 99 01/22/21 07:36 Body Mass Index 21.6 Gen: cachectic HEENT: sclera anicteric, moist mucus membranes Neck: supple Lungs: clear to auscultation bilaterally Heart: regular rate and rhythm, no murmurs Abd: soft, tender periumbilical and epigastric, no HSM Ext: no edema Skin: warm/well-perfused Neuro: alert and oriented x3, no focal findings Psych: appropriate affect Objective Data Current Medications Generic Name Dose Route Start Last Admin Trade Name Faustoq PRN Reason Stop Dose Admin Acetaminophen 650 mg 01/20/21 22:21 Acetaminophen 325 Mg Tablet PO Q6H PRN Pain, Mild (Pain Scale 1-3) Docusate Sodium 100 mg 01/20/21 22:21 Docusate Sodium 100 Mg Capsule PO DAILY PRN Constipation Folic Acid 1 mg 01/21/21 09:00 01/21/21 09:12 Folic Acid 1 Mg Tablet PO 1 mg DAILY LELIA Administration Heparin Sodium (Porcine) 5,000 unit 01/20/21 23:00 01/22/21 00:24 Heparin Sodium,Porcine 5,000 Unit/Ml Vial SUBCUT 5,000 unit Q12H LELIA Administration Mirtazapine 30 mg 01/20/21 22:45 01/21/21 20:27 Mirtazapine 30 Mg Tablet PO 30 mg BEDTIME LELIA Administration Nicotine 21 mg 01/21/21 11:15 01/21/21 12:11 Nicotine 21 Mg Patch.Td24 TRANSDERMA 21 mg DAILY LELIA Administration Omeprazole 40 mg 01/20/21 22:45 01/21/21 20:27 Omeprazole 40 Mg Capsule.Dr PO 40 mg BID LELIA Administration Ondansetron HCl 4 mg 01/20/21 22:21 Ondansetron Hcl 4 Mg/2 Ml Vial IVPUSH Q8H PRN Nausea and Vomiting Oxycodone HCl 5 mg 01/21/21 01:43 01/22/21 01:27 Oxycodone Hcl Immed Release 5 Mg Tablet PO 5 mg Q6H PRN Administration Pain, Severe (Pain Scale 7-10) Pharmacy Consult 1 each 01/20/21 18:37 Consult Rx Perform Med Rec MISCELLANE ONCE PRN Consult order Sodium Chloride 3 ml 01/21/21 00:00 01/22/21 01:23 0.9 % Sodium Chloride Flush 3 Ml Syringe IVFLUSH 3 ml QSHIFT LELIA Administration Sucralfate 1 gm 01/20/21 22:45 01/21/21 20:27 Sucralfate 1 Gm Tablet PO 1 gm QID LELIA Administration Thiamine HCl 100 mg 01/21/21 09:00 01/21/21 09:14 Thiamine Hcl 100 Mg Tablet PO 100 mg DAILY LELIA Administration Vitamin D 50 mcg 01/21/21 09:00 01/21/21 09:13 Cholecalciferol (Vitamin D3) 25 Mcg Tablet PO 50 mcg DAILY LELIA Administration Zinc Acetate/Diphenhydramine 1 appl 01/21/21 12:42 Diphenhydramine Hcl 2 % Cream 28 Gm Tube TOPICAL QID PRN itching Protocol Labs CBC & Chem 7: 01/21/21 05:49 01/21/21 05:49 Microbiology Microbiology Results: Microbiology 01/20/21 15:43 Blood Culture - Preliminary Blood - Venous No growth after 24 hours. 01/20/21 15:33 Blood Culture - Preliminary Blood - Venous No growth after 24 hours. Assessment and Plan (1) Cystic mass of pancreas: Status: Acute Assessment and Plan: hospital d#3 75yo M with hx perforated stomach ulcer s/p partial gastrectomy presenting with weight loss and abd pain, found to have 6 cm multicystic, septated pancreatic lesion with distal pancreatic duct dilation up to 6 mm # cystic pancreatic neoplasm - needs EUS/FNA per GI. attempted to transfer to [facility] + [facility] + [facility] [place] [facility] but no beds available at this time- they recommended we try again later as beds may open up. 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
[2021-01-22] MEDS: Omeprazole 40 MG CAPSULE.DR PO ×2 (08:06→20:21)
[2021-01-22] MEDS: Thiamine HCL 100 MG TABLET PO (08:06)
[2021-01-22] MEDS: Nicotine 21 MG PATCH.TD24 TRANSDERMA (08:06)
[2021-01-22 11:34] VITALS: BP 157/84; PULSE 87; RESP 16; TEMP 36.4; O2SAT 98
[2021-01-22 15:38] VITALS: BP 143/83; PULSE 79; RESP 19; TEMP 36.7; O2SAT 99
[2021-01-22] MEDS: diphenhydrAMINE HCl 2 % Cream 28 GM TUBE 1 APPL TOPICAL (17:13)
[2021-01-22 19:48] VITALS: BP 138/75; PULSE 80; RESP 17; TEMP 36.4; O2SAT 99
[2021-01-22] MEDS: Mirtazapine 30 MG TABLET PO (20:20)
[2021-01-22 23:36] VITALS: BP 150/82; PULSE 93; RESP 16; TEMP 36.7; O2SAT 100
[2021-01-23] MEDS: Heparin Sodium,Porcine 5,000 UNIT/ML VIAL 5000 UNIT SUBCUT ×2 (01:45→12:17)
[2021-01-23] MEDS: 0.9 % Sodium Chloride Flush 3 ML SYRINGE IVFLUSH ×4 (01:45→20:45)
[2021-01-23 04:00] VITALS: BP 137/84; PULSE 92; RESP 16; TEMP 37.4; O2SAT 98
[2021-01-23] MEDS: oxyCODONE HCl Immed Release 5 MG TABLET PO ×4 (04:17→20:45)
[2021-01-23 07:56] VITALS: BP 117/64; PULSE 75; RESP 17; TEMP 37.2; O2SAT 100
[2021-01-23] MEDS: Sucralfate 1 GM TABLET PO ×4 (08:42→20:45)
[2021-01-23] MEDS: Thiamine HCL 100 MG TABLET PO (08:42)
[2021-01-23] MEDS: Folic Acid 1 MG TABLET PO (08:42)
[2021-01-23] MEDS: Omeprazole 40 MG CAPSULE.DR PO ×2 (08:42→20:45)
[2021-01-23] MEDS: Nicotine 21 MG PATCH.TD24 TRANSDERMA (08:42)
[2021-01-23] MEDS: Cholecalciferol (Vitamin D3) 25 MCG TABLET 50 MCG PO (08:42)
--- NOTE | 2021-01-23 11:16 | MHC.CM.PN ---
CURRENT PLAN IS WAITING TRANSFER BED TO OPEN. CASE MANAGEMENT FOLLOWING. [facility] ([facility])PROVIDES SERVICES IN COMMUNITY AND WELLNESS CONSULTANT HAS BEEN NOTIFIED OF PLAN (MARITZA [phone]).
[2021-01-23 12:00] VITALS: BP 148/67; PULSE 77; RESP 16; TEMP 37.2; O2SAT 100
[2021-01-23 12:11] LABS: Carbohydrate Antigen 19-9 51 U/mL (<34)
--- NOTE | 2021-01-23 12:14 | MHC.CM.PN ---
PATIENT PROVIDED WITH [facility] PROVIDER GROUP PHYSICIANS PER REQUEST. PATIENT IS INTERESTED IN SECURING A NEW PCP FOR HIS HEALTHCARE NEEDS.
[2021-01-23 12:55] VITALS: BMI 21.6
[2021-01-23 15:28] VITALS: BP 131/83; PULSE 84; RESP 18; TEMP 37.4; O2SAT 99
[2021-01-23 16:23] LABS: Hematocrit 35.5 % (42-52); Hemoglobin 11.8 g/dl (14.0-18.0); Mean Corpuscular HGB Conc 33.2 g/dl (31.0-36.0); Mean Corpuscular Hemoglobin 30.1 pg (27.0-33.0); Mean Corpuscular Volume 90.6 fL (80-98); Mean Platelet Volume 9.8 fL (9.4-12.4); Platelet Count 272 X10*3/uL (160-400); Red Blood Count 3.92 X10*6/uL (4.60-5.80); Red Cell Distribution Width 13.8 % (11.0-16.0); White Blood Count 15.6 X10*3/uL (4.8-10.8)
[2021-01-23 16:40] LABS: Alanine Aminotransferase 7 U/L (0-40); Aspartate Amino Transferase 12 U/L (5-37); Bilirubin Direct 0.4 mg/dL (0.0-0.5); Bilirubin Total 0.8 mg/dL (0.0-1.0); Total Protein 5.2 g/dL (6.5-8.0)
[2021-01-23 16:56] LABS: Albumin Level 2.6 g/dL (3.5-5.0); Alkaline Phosphatase 116 U/L (39-117); Anion Gap 16 (12-20); Blood Urea Nitrogen 7 mg/dL (9-16); Calcium 8.1 mg/dL (8.4-10.2); Carbon Dioxide 26 mmol/L (22-29); Chloride 102 mmol/L (96-108); Creatinine Clr Calc Pharmacy 100.7; Estimated Glomerular Filt Rate > 60; Glucose Random 164 mg/dL (60-115); Potassium 3.1 mmol/L (3.3-5.1); Sodium 141 mmol/L (135-145)
[2021-01-23] MEDS: Acetaminophen 325 MG TABLET 650 MG PO (17:23)
--- NOTE | 2021-01-23 18:38 | PM.DS ---
DS: Providers Provider Date of Service: 01/23/21 Date of admission: 01/20/21 22:18 Primary care physician: Unknown Physician Consults: 01/20/21 19:39 Consult to Gastroenterology Stat Consulting Provider: Larry Matt Reason for consultation: pancreatic mass 01/20/21 22:21 Consult to Gastroenterology Routine Consulting Provider: Larry Matt Reason for consultation: Pancreatic mass DS: Diagnosis Discharge Diagnosis (1) Cystic mass of pancreas: Status: Acute DS: Summary Hospital Course Hospital Course: Chief Complaint: No appetite This is a 75-year-old male with no significant past medical history who presents to the hospital with complaints of persistent loss of appetite.? Patient reports that he started having loss of appetite for the past 4 months and significant weight loss as a result.? Patient reports that he was given appetite stimulant by his PCP, but they were becoming ineffective, he called to have it increase but he did not hear back from his doctor and therefore decided to come to the ED.? Patient reports abdominal pain in the epigastric region, feels like tension, 5/10, intermittent, daily, radiating to the back, feels dizzy, also complaining of ED urinary urgency for many years with no changes now. He reports that he lost about 50 lb in the past 4 months but 30 lb in the past 1 month because he did not even have his appetite stimulant. He denies any fever or chills, he denies any chest pain, no shortness of breath, no nausea or vomiting, no diarrhea constipation, no numbness tingling and no lower extremity edema. On arrival to the ED hemodynamically stable with no significant abnormal vitals Labs on arrival are significant for WBC count of 12.5, alk-phos of 151, UA negative. Abdominal pelvic CT shows a large cystic lesion in the body of the pancreas suspicious for cystic pancreatic neoplasm.? Differential can also include large pseudocyst.? Patient does report history of alcohol abuse but has not drink for 1 month, reports that he was a daily drinker up until one year ago but is now drinks 2 to 3 times a week but stopped about 1 month ago due to the weird taste of alcohol. GI consult to patient will be admitted for further management evaluation Hospital course: Patient admitted to medical floor with a diagnosis of cystic pancreatic neoplasm--Seen by Dr. Matt(GI) she recommended EUS/FNA patient was transferred to [facility] on January 25 for the procedure and returned back the same day, patient was found to have a complex cystic lesion in the pancreatic head, fine needle aspiration for fluid was performed, cytology reports are pending differential includes pseudocyst, cystic neoplasm, IPMN postprocedure patient has been doing fine tolerating diet he is recommended to follow up with primary care physician and with Dr. Matt to obtain biopsy result. Leukocytosis seems reacted with no evidence of infection and no signs of sepsis, urinalysis is unremarkable basis of lungs are clear In regard to moderate protein calorie malnutrition patient is recommended to take protein supplements and has been strongly advised to abstain from smoking he is recommended to continue nicotine patch. Hypokalemia resolved In regard to moderate protein calorie malnutrition his recommended to take protein supplements Time Spent with Patient Time attestation: Total time spent providing and/or coordinating discharge services: Discharge coordination time: Greater than 30 minutes Quality: Stroke Does the patient have a stroke diagnosis?: No Physical Exam Vital Signs: Vital Signs: Last Vital Signs Temp 99.4 F 01/23/21 15:28 Pulse 84 01/23/21 15:28 Resp 18 01/23/21 15:28 BP 131/83 01/23/21 15:28 Pulse Ox 99 01/23/21 15:28 Body Mass Index 21.6 Gen: cachectic HEENT: sclera anicteric, moist mucus membranes Neck: supple Lungs: clear to auscultation bilaterally Heart: regular rate and rhythm, no murmurs Abd: soft, tender periumbilical and epigastric, no HSM Ext: no edema Skin: warm/well-perfused Neuro: alert and oriented x3, no focal findings Psych: appropriate affect DS: Data Data Completed and Pending Labs on day of discharge: Laboratory Results - last 24 hr 01/21/21 01/23/21 01/23/21 05:49 16:03 16:03 WBC 15.6 H RBC 3.92 L Hgb 11.8 L Hct 35.5 L MCV 90.6 MCH 30.1 MCHC 33.2 RDW 13.8 Plt Count 272 MPV 9.8 Absolute Nucleated RBC 0.000 Nucleated RBC % (auto) 0.0 Sodium Potassium Chloride Carbon Dioxide Anion Gap BUN Creatinine Estim Creat Clear Calc Estimated GFR Random Glucose Calcium Total Bilirubin 0.8 Direct Bilirubin 0.4 AST 12 ALT 7 Alkaline Phosphatase 116 D Total Protein 5.2 L Albumin 2.6 L D CA 19-9 Antigen 51 H 01/23/21 16:03 WBC RBC Hgb Hct MCV MCH MCHC RDW Plt Count MPV Absolute Nucleated RBC Nucleated RBC % (auto) Sodium 141 Potassium 3.1 L D Chloride 102 Carbon Dioxide 26 Anion Gap 16 BUN 7 L Creatinine 0.63 Estim Creat Clear Calc 100.7 Estimated GFR > 60 Random Glucose 164 H D Calcium 8.1 L Total Bilirubin Direct Bilirubin AST ALT Alkaline Phosphatase Total Protein Albumin CA 19-9 Antigen Preliminary micro results at discharge 01/20/21 15:43 Blood Culture - Preliminary Blood - Venous No growth after 48 hours. 01/20/21 15:33 Blood Culture - Preliminary Blood - Venous No growth after 48 hours. Discharge Plan Discharge Anticipated Discharge Date/Time: 01/26/21 12:44 Patient Disposition: Home, Self-Care Discharge Diagnosis: Cystic pancreatic mass associated with weight loss Referrals: Physician,Unknown [Physician] - 1 Week Discharge Medications: Continued nicotine 14 mg/24 hr Patch 24 Hour 1 patch TRANSDERMAL DAILY RF: 0 magnesium oxide 420 mg Tablet 420 mg PO DAILY RF: 0 sucralfate 1 gram Tablet 1 g PO QID RF: 0 thiamine HCl (vitamin B1) 100 mg Tablet 100 mg PO DAILY RF: 0 acetaminophen 500 mg Tablet 1,000 mg PO TID RF: 0 mirtazapine [Remeron] 30 mg Tablet 30 mg PO BEDTIME RF: 0 folic acid 1 mg Tablet 1 mg PO DAILY RF: 0 omeprazole 20 mg Tablet,Delayed Release (Dr/Ec) 40 mg PO BID RF: 0 cholecalciferol (vitamin D3) [Vitamin D3] 50 mcg (2,000 unit) Tablet 50 mcg PO DAILY RF: 0 Discharge Orders: Discharge Order (Routine); Ordered 01/26/21 Ordered By: aJyme Mayer Diet: advance to usual diet Activity on Discharge: As tolerated Stand Alone Forms: Patient Portal Discharge page Care Plan Goals: Pancreatic mass status post Upper endoscopic biopsy of pancreatic mass at [facility], fine needle aspiration for fluid has been performed, cytology results are pending follow-up with PCP to obtain results of biopsy. Health Concerns: strongly recommend to abstain from smoking. Plan of Treatment: Follow-up with PCP in 1 week, follow-up with Dr. Matt from Gastroenterology in next 7-10 days. Assessment: as above Discharge Date/Time: 01/26/21 14:21
[2021-01-23 19:09] VITALS: BP 140/75; PULSE 69; RESP 16; TEMP 36.4; O2SAT 97
[2021-01-23] MEDS: Potassium Chloride Packet 20 MEQ PACKET 40 MEQ PO (19:12)
[2021-01-23] MEDS: Mirtazapine 30 MG TABLET PO (20:45)
[2021-01-24] VITALS (7 sets, daily range): BP systolic 129–165; BP diastolic 71–91; PULSE 74–93; RESP 14–18; TEMP 36.5–37.3; O2SAT 98–100
[2021-01-24] MEDS: oxyCODONE HCl Immed Release 5 MG TABLET PO ×5 (02:59→23:51)
[2021-01-24] MEDS: 0.9 % Sodium Chloride Flush 3 ML SYRINGE IVFLUSH (08:35)
[2021-01-24] MEDS: Nicotine 21 MG PATCH.TD24 TRANSDERMA (08:35)
[2021-01-24] MEDS: Omeprazole 40 MG CAPSULE.DR PO ×2 (08:36→20:28)
[2021-01-24] MEDS: Folic Acid 1 MG TABLET PO (08:36)
[2021-01-24] MEDS: Sucralfate 1 GM TABLET PO ×4 (08:36→20:28)
[2021-01-24] MEDS: Thiamine HCL 100 MG TABLET PO (08:36)
[2021-01-24] MEDS: Cholecalciferol (Vitamin D3) 25 MCG TABLET 50 MCG PO (08:36)
--- NOTE | 2021-01-24 11:40 | MHC.CM.PN ---
CALL TO [facility] TRANSFER UNIT [phone] THIS ICE CREAM FREEZER ASSISTANT SPOKE WITH RN ABDIRIZAK, WHO REPORTS THAT PATIENT IS ON THE LIST FOR A DIRECT ADMIT TO PROCEDURE. THERE IS A POSSIBILITY THAT TRANSFER WILL HAPPEN TODAY. ABDIRIZAK IS SPEAKING WITH PROVIDERS AND WILL CALL HOSPITALIST BACK WITH CONFIRMATION. UNIT AND RN AWARE.
[2021-01-24] MEDS: Dextrose 5 % and 0.9 % NaCl 1,000 ML 80 ML IVCONT ×2 (12:37→23:53)
[2021-01-24] MEDS: Acetaminophen 325 MG TABLET 650 MG PO (13:24)
--- NOTE | 2021-01-24 17:39 | P.PNIM_ITS ---
Subjective Subjective Date of Service: 01/24/21 Interval History: pancreatic mass Review of Systems Denies any chest pain or shortness of breath Still has abdominal pain Denies any nausea or vomiting. Physical Exam Vital Signs: Vital Signs: Last Vital Signs Temp 98.4 F 01/24/21 15:27 Pulse 80 01/24/21 15:27 Resp 18 01/24/21 15:27 BP 142/75 H 01/24/21 15:27 Pulse Ox 99 01/24/21 15:27 Body Mass Index 21.6 Gen: thin build HEENT: sclera anicteric, moist mucus membranes Lungs: clear to auscultation bilaterally, take areano rales or wheezing Heart: regular rate and rhythm, no murmurs Abd: soft, tender periumbilical and epigastric, bs present Ext: no edema Skin: warm/well-perfused Neuro: alert and oriented x3, no focal findings Psych: appropriate affec Objective Data Current Medications Generic Name Dose Route Start Last Admin Trade Name Freq PRN Reason Stop Dose Admin Acetaminophen 650 mg 01/20/21 22:21 01/24/21 13:24 Acetaminophen 325 Mg Tablet PO 650 mg Q6H PRN Administration Pain, Mild (Pain Scale 1-3) Docusate Sodium 100 mg 01/20/21 22:21 Docusate Sodium 100 Mg Capsule PO DAILY PRN Constipation Docusate Sodium 100 mg 01/24/21 11:10 Docusate Sodium 100 Mg Capsule PO BEDTIME PRN Nausea Folic Acid 1 mg 01/21/21 09:00 01/24/21 08:36 Folic Acid 1 Mg Tablet PO 1 mg DAILY LELIA Administration Heparin Sodium (Porcine) 5,000 unit 01/20/21 23:00 01/24/21 10:07 Heparin Sodium,Porcine 5,000 Unit/Ml Vial SUBCUT Not Given Q12H LELIA Dextrose/Sodium Chloride 1,000 mls @ 80 mls/hr 01/24/21 12:30 01/24/21 12:37 D5ns IVCONT 80 mls/hr .[id number] LELIA Administration Mirtazapine 30 mg 01/20/21 22:45 01/23/21 20:45 Mirtazapine 30 Mg Tablet PO 30 mg BEDTIME LELIA Administration Nicotine 21 mg 01/21/21 11:15 01/24/21 08:35 Nicotine 21 Mg Patch.Td24 TRANSDERMA 21 mg DAILY LELIA Administration Omeprazole 40 mg 01/20/21 22:45 01/24/21 08:36 Omeprazole 40 Mg Capsule.Dr PO 40 mg BID LELIA Administration Ondansetron HCl 4 mg 01/20/21 22:21 Ondansetron Hcl 4 Mg/2 Ml Vial IVPUSH Q8H PRN Nausea and Vomiting Oxycodone HCl 5 mg 01/24/21 11:09 01/24/21 17:26 Oxycodone Hcl Immed Release 5 Mg Tablet PO 5 mg Q4H PRN Administration Pain, Severe (Pain Scale 7-10) Pharmacy Consult 1 each 01/20/21 18:37 Consult Rx Perform Med Rec MISCELLANE ONCE PRN Consult order Senna 17.2 mg 01/24/21 21:00 Sennosides 8.6 Mg Tablet PO BEDTIME ELLIA Sodium Chloride 3 ml 01/21/21 00:00 01/24/21 15:05 0.9 % Sodium Chloride Flush 3 Ml Syringe IVFLUSH Not Given QSHIFT LELIA Sucralfate 1 gm 01/20/21 22:45 01/24/21 17:26 Sucralfate 1 Gm Tablet PO 1 gm QID LELIA Administration Thiamine HCl 100 mg 01/21/21 09:00 01/24/21 08:36 Thiamine Hcl 100 Mg Tablet PO 100 mg DAILY LELIA Administration Vitamin D 50 mcg 01/21/21 09:00 01/24/21 08:36 Cholecalciferol (Vitamin D3) 25 Mcg Tablet PO 50 mcg DAILY LELIA Administration Zinc Acetate/Diphenhydramine 1 appl 01/21/21 12:42 01/22/21 17:13 Diphenhydramine Hcl 2 % Cream 28 Gm Tube TOPICAL 1 appl QID PRN Administration itching Protocol Labs CBC & Chem 7: 01/23/21 16:03 01/23/21 16:03 Assessment and Plan (1) Decreased appetite: Status: Acute (2) Epigastric pain: Status: Acute Assessment and Plan: 75yo M with hx perforated stomach ulcer s/p partial gastrectomy presenting with weight loss and abd pain, found to have 6 cm multicystic, septated pancreatic lesion with distal pancreatic duct dilation up to 6 mm 1.cystic pancreatic neoplasm - needs EUS/FNA per GI.? attempted to transfer to [facility] + [facility] + [facility] but no beds available at this time- they recommended we try again later as beds may open up.? notably, pt reports being at [facility] 1 yr ago and having EGD and CT scan- will request records add ivf since patient is npo Discussed with [facility] currently does not have any bed-they are planning to transfer either over the evening but possibly more likely in the morning. 2. moderate pr/jc malnutrition - supplements 3. 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 VTE ppx - continue UFH Dispo: Will attempt reaching out to outside hospital for trasnsfer Quality Stroke Does the patient have a stroke diagnosis?: No VTE Prior VTE?: No VTE Risk Level:: Medical - moderate - high VTE Device Contraindication: Treatment Not Indicated VTE Drug Contraindication: N/A - Med Ordered
[2021-01-24] MEDS: Sennosides 8.6 MG TABLET 17.2 MG PO (20:28)
[2021-01-24] MEDS: Mirtazapine 30 MG TABLET PO (20:28)
[2021-01-25 03:37] VITALS: BP 135/81; PULSE 88; RESP 14; TEMP 37.1; O2SAT 99
[2021-01-25] MEDS: oxyCODONE HCl Immed Release 5 MG TABLET PO ×3 (06:16→23:01)
[2021-01-25 06:53] LABS: Anion Gap 9 (12-20); Blood Urea Nitrogen 6 mg/dL (9-16); Calcium 7.7 mg/dL (8.4-10.2); Carbon Dioxide 28 mmol/L (22-29); Chloride 107 mmol/L (96-108); Creatinine Clr Calc Pharmacy 113.3; Estimated Glomerular Filt Rate > 60; Glucose Random 119 mg/dL (60-115); Potassium 3.3 mmol/L (3.3-5.1); Sodium 141 mmol/L (135-145)
[2021-01-25 08:00] VITALS: BP 103/62; PULSE 81; RESP 14; TEMP 36.1; O2SAT 97
[2021-01-25] MEDS: Sucralfate 1 GM TABLET PO ×2 (08:49→21:45)
[2021-01-25] MEDS: Nicotine 21 MG PATCH.TD24 TRANSDERMA (08:49)
[2021-01-25] MEDS: Cholecalciferol (Vitamin D3) 25 MCG TABLET 50 MCG PO (08:49)
[2021-01-25] MEDS: Thiamine HCL 100 MG TABLET PO (08:50)
[2021-01-25] MEDS: Folic Acid 1 MG TABLET PO (08:50)
[2021-01-25] MEDS: Omeprazole 40 MG CAPSULE.DR PO ×2 (08:50→21:46)
--- NOTE | 2021-01-25 09:59 | MHC.CLN ---
FOLLOW UP PATIENT WITH CYSTIC PANCREATIC NEOPLASM. CURRENTLY NPO AND AWAITING TRANSFER TO ANOTHER FACILITY FOR PROCEDURE.
[2021-01-25] MEDS: Docusate Sodium 100 MG CAPSULE PO (10:24)
[2021-01-25 11:44] VITALS: BP 111/64; PULSE 84; RESP 15; TEMP 36.4; O2SAT 99
--- NOTE | 2021-01-25 12:48 | MHC.CM.PN ---
PATIENT SCHEDULED FOR EUS/FNA AT [facility] FOR 1400. [facility] TO TRANSPORT. RN SPOKE WITH FACILITY RN, FLETCHER @ [phone] [facility] UNIT IS SECOND FLOOR- [facility]. [facility] MADE AWARE OF NEED FOR [facility] RN TO ACCOMPANY PATIENT. UNIT, RN, PATIENT, AND HOSPITALIST AWARE OF PLAN. POST DISCHARGE, THIS GAME PRESERVE MANAGER WAS MADE AWARE THAT [facility] WILL HAVE TO ARRANGE TRANSPORT FROM THEIR FACILITY FOR PATIENT RETURN. [facility] MORGAN BYNUM IN AGREEMENT.
--- NOTE | 2021-01-25 15:14 | HO.PM.IMPN ---
Subjective Subjective Date of Service: 01/25/21 Interval History: Pancreatic mass Review of Systems Patient has some abdominal discomfort, denies any nausea or vomiting Plan to go to [facility] for endoscopic ultrasound procedure. Physical Exam Vital Signs: Vital Signs: Last Vital Signs Temp 97.5 F 01/25/21 11:44 Pulse 84 01/25/21 11:44 Resp 15 01/25/21 11:44 BP 111/64 01/25/21 11:44 Pulse Ox 99 01/25/21 11:44 Body Mass Index 21.6 ?Gen: thin build HEENT: sclera anicteric, moist mucus membranes Lungs: clear to auscultation bilaterally, take areano rales or wheezing Heart: regular rate and rhythm, no murmurs Abd: soft, tender periumbilical and epigastric, bs present Ext: no edema Skin: warm/well-perfused Neuro: alert and oriented x3, no focal findings Psych: appropriate affect. Objective Data Current Medications Generic Name Dose Route Start Last Admin Trade Name Freq PRN Reason Stop Dose Admin Acetaminophen 650 mg 01/20/21 22:21 01/24/21 13:24 Acetaminophen 325 Mg Tablet PO 650 mg Q6H PRN Administration Pain, Mild (Pain Scale 1-3) Docusate Sodium 100 mg 01/20/21 22:21 01/25/21 10:24 Docusate Sodium 100 Mg Capsule PO 100 mg DAILY PRN Administration Constipation Docusate Sodium 100 mg 01/24/21 11:10 Docusate Sodium 100 Mg Capsule PO BEDTIME PRN Nausea Folic Acid 1 mg 01/21/21 09:00 01/25/21 08:50 Folic Acid 1 Mg Tablet PO 1 mg DAILY LELIA Administration Heparin Sodium (Porcine) 5,000 unit 01/20/21 23:00 01/25/21 08:50 Heparin Sodium,Porcine 5,000 Unit/Ml Vial SUBCUT Not Given Q12H LELIA Dextrose/Sodium Chloride 1,000 mls @ 80 mls/hr 01/24/21 12:30 01/25/21 12:46 D5ns IVCONT Not Given .[id number] LELIA Mirtazapine 30 mg 01/20/21 22:45 01/24/21 20:28 Mirtazapine 30 Mg Tablet PO 30 mg BEDTIME LELIA Administration Nicotine 21 mg 01/21/21 11:15 01/25/21 08:49 Nicotine 21 Mg Patch.Td24 TRANSDERMA 21 mg DAILY LELIA Administration Omeprazole 40 mg 01/20/21 22:45 01/25/21 08:50 Omeprazole 40 Mg Capsule.Dr PO 40 mg BID LELIA Administration Ondansetron HCl 4 mg 01/20/21 22:21 Ondansetron Hcl 4 Mg/2 Ml Vial IVPUSH Q8H PRN Nausea and Vomiting Oxycodone HCl 5 mg 01/24/21 11:09 01/25/21 10:24 Oxycodone Hcl Immed Release 5 Mg Tablet PO 5 mg Q4H PRN Administration Pain, Severe (Pain Scale 7-10) Pharmacy Consult 1 each 01/20/21 18:37 Consult Rx Perform Med Rec MISCELLANE ONCE PRN Consult order Senna 17.2 mg 01/24/21 21:00 01/24/21 20:28 Sennosides 8.6 Mg Tablet PO 17.2 mg BEDTIME LELIA Administration Sodium Chloride 3 ml 01/21/21 00:00 01/25/21 14:58 0.9 % Sodium Chloride Flush 3 Ml Syringe IVFLUSH Not Given QSHIFT LELIA Sucralfate 1 gm 01/20/21 22:45 01/25/21 12:46 Sucralfate 1 Gm Tablet PO Not Given QID LELIA Thiamine HCl 100 mg 01/21/21 09:00 01/25/21 08:50 Thiamine Hcl 100 Mg Tablet PO 100 mg DAILY LELIA Administration Vitamin D 50 mcg 01/21/21 09:00 01/25/21 08:49 Cholecalciferol (Vitamin D3) 25 Mcg Tablet PO 50 mcg DAILY LELIA Administration Zinc Acetate/Diphenhydramine 1 appl 01/21/21 12:42 01/22/21 17:13 Diphenhydramine Hcl 2 % Cream 28 Gm Tube TOPICAL 1 appl QID PRN Administration itching Protocol Labs CBC & Chem 7: 01/23/21 16:03 01/25/21 06:10 Labs: Laboratory Results - last 24 hr 01/25/21 06:10 Anion Gap 9 L Estim Creat Clear Calc 113.3 Estimated GFR > 60 Random Glucose 119 H Calcium 7.7 L Assessment and Plan (1) Cystic mass of pancreas: Status: Acute Assessment and Plan: 75yo M with hx perforated stomach ulcer s/p partial gastrectomy presenting with weight loss and abd pain, found to have 6 cm multicystic, septated pancreatic lesion with distal pancreatic duct dilation up to 6 mm 1.cystic pancreatic neoplasm - needs EUS/FNA per GI.? attempted to transfer to [facility] + [facility] + [facility] but no beds available at this time- they recommended we try again later as beds may open up.? notably, pt reports being at [facility] 1 yr ago and having EGD and CT scan- will request records add ivf since patient is npo Discussed with [facility] -Dr. Soares: The decided to do the above procedure today-patient is being transferred to [facility] with interruption of stay and to return back to [place]. Patient will come back to [facility] after the procedure. 2. moderate pr/jc malnutrition - supplements 3. 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 VTE ppx - continue UFH Dispo: [facility] Quality Stroke Does the patient have a stroke diagnosis?: No VTE Prior VTE?: No VTE Risk Level:: Medical - moderate - high VTE Device Contraindication: Treatment Not Indicated VTE Drug Contraindication: N/A - Med Ordered
--- NOTE | 2021-01-25 15:54 | PC.NURSE ---
Patient scheduled for procedure at [facility]. Ambulance transport set up to bring patient there. RN to RN given to Nini MORA at [facility]. Clinical coordinator Karissa accompanying patient to procedure. Hand off given to karissa. Report given to ambulance personnel. [facility] to set up patient transfer back to [facility].
[2021-01-25 21:14] VITALS: BP 142/85; PULSE 91; RESP 18; TEMP 36.9; O2SAT 99
[2021-01-25] MEDS: Mirtazapine 30 MG TABLET PO (21:45)
[2021-01-25] MEDS: Sennosides 8.6 MG TABLET 17.2 MG PO (21:45)
[2021-01-25] MEDS: 0.9 % Sodium Chloride Flush 3 ML SYRINGE IVFLUSH (21:46)
[2021-01-25] MEDS: Heparin Sodium,Porcine 5,000 UNIT/ML VIAL 5000 UNIT SUBCUT (22:57)
[2021-01-25 23:38] VITALS: BP 131/66; PULSE 86; RESP 15; TEMP 36.8; O2SAT 99
[2021-01-26 03:21] VITALS: BP 147/90; PULSE 78; RESP 16; TEMP 36.4; O2SAT 98
[2021-01-26 08:00] VITALS: BP 126/68; PULSE 75; RESP 15; TEMP 36.8; O2SAT 99
[2021-01-26] MEDS: Nicotine 21 MG PATCH.TD24 TRANSDERMA (08:49)
[2021-01-26] MEDS: Omeprazole 40 MG CAPSULE.DR PO (08:50)
[2021-01-26] MEDS: Folic Acid 1 MG TABLET PO (08:50)
[2021-01-26] MEDS: Sucralfate 1 GM TABLET PO ×2 (08:50→11:01)
[2021-01-26] MEDS: Thiamine HCL 100 MG TABLET PO (08:50)
[2021-01-26] MEDS: Cholecalciferol (Vitamin D3) 25 MCG TABLET 50 MCG PO (08:50)
[2021-01-26] MEDS: oxyCODONE HCl Immed Release 5 MG TABLET PO (08:50)
--- NOTE | 2021-01-26 10:03 | MHC.CM.PN ---
PER PATIENT REQUEST, CALL PLACED TO [phone] ([facility]) PATIENT IS REQUESTING A HOSPITAL DC FOLLOW-UP VISIT, AND ALSO ASKING FOR A NEW PROVIDER INFORMATION TAKEN BY YAHAIRA, AND SHE WILL PASS THIS ALONG CALL WILL COME INTO CASE MANAGEMENT IF THEY ARE UNABLE OT REACH PATIENT. PATIENT'S PHONE IS FULLY CHARGED AND ON HIS BED. PATIENT IS AWARE OT WAIT FOR A CALL. IF CALL COMES AFTER PATIENT IS DC TO HOME, THIS SOFTWARE ENGINEER KERNEL WILL FOLLOW UP ONCE CALL FROM [place] IS RECEIVED.
--- NOTE | 2021-01-26 10:41 | PC.NURSE ---
Skin assessment completed today. Patient's skin is intact-no issues. Patient has fungal toenails and long nails. Suggested to patient he see a fondant cooker.
[2021-01-26] MEDS: Heparin Sodium,Porcine 5,000 UNIT/ML VIAL 5000 UNIT SUBCUT (11:00)
[2021-01-26] MEDS: 0.9 % Sodium Chloride Flush 3 ML SYRINGE IVFLUSH (11:01)
[2021-01-26 11:51] VITALS: BP 125/69; PULSE 71; RESP 16; TEMP 36.8; O2SAT 100
--- NOTE | 2021-01-26 12:57 | PM.DS ---
DS: Providers Provider Date of Service: 01/26/21 Date of admission: 01/20/21 22:18 Primary care physician: Unknown Physician Consults: 01/20/21 19:39 Consult to Gastroenterology Stat Consulting Provider: Larry Matt Reason for consultation: pancreatic mass 01/20/21 22:21 Consult to Gastroenterology Routine Consulting Provider: Larry Matt Reason for consultation: Pancreatic mass DS: Diagnosis Discharge Diagnosis (1) Cystic mass of pancreas: Status: Acute DS: Medications Discharge Medications Home Medications: Home Medications Medication Instructions Recorded Confirmed acetaminophen 500 mg tablet 1,000 mg PO TID 01/20/21 01/20/21 cholecalciferol (vitamin D3) 50 50 mcg PO DAILY 01/20/21 01/20/21 mcg (2,000 unit) tablet (Vitamin D3) folic acid 1 mg tablet 1 mg PO DAILY 01/20/21 01/20/21 magnesium oxide 420 mg tablet 420 mg PO DAILY 01/20/21 01/20/21 mirtazapine 30 mg tablet (Remeron) 30 mg PO BEDTIME 01/20/21 01/20/21 nicotine 14 mg/24 hr daily 1 patch TRANSDERMAL DAILY 01/20/21 01/20/21 transdermal patch omeprazole 20 mg tablet,delayed 40 mg PO BID 01/20/21 01/20/21 release sucralfate 1 gram tablet 1 g PO QID 01/20/21 01/20/21 thiamine HCl (vitamin B1) 100 mg 100 mg PO DAILY 01/20/21 01/20/21 tablet DS: Summary Hospital Course Hospital Course: Chief Complaint: No appetite This is a 75-year-old male with no significant past medical history who presents to the hospital with complaints of persistent loss of appetite.? Patient reports that he started having loss of appetite for the past 4 months and significant weight loss as a result.? Patient reports that he was given appetite stimulant by his PCP, but they were becoming ineffective, he called to have it increase but he did not hear back from his doctor and therefore decided to come to the ED.? Patient reports abdominal pain in the epigastric region, feels like tension, 5/10, intermittent, daily, radiating to the back, feels dizzy, also complaining of ED urinary urgency for many years with no changes now. He reports that he lost about 50 lb in the past 4 months but 30 lb in the past 1 month because he did not even have his appetite stimulant. He denies any fever or chills, he denies any chest pain, no shortness of breath, no nausea or vomiting, no diarrhea constipation, no numbness tingling and no lower extremity edema. On arrival to the ED hemodynamically stable with no significant abnormal vitals Labs on arrival are significant for WBC count of 12.5, alk-phos of 151, UA negative. Abdominal pelvic CT shows a large cystic lesion in the body of the pancreas suspicious for cystic pancreatic neoplasm.? Differential can also include large pseudocyst.? Patient does report history of alcohol abuse but has not drink for 1 month, reports that he was a daily drinker up until one year ago but is now drinks 2 to 3 times a week but stopped about 1 month ago due to the weird taste of alcohol. GI consult to patient will be admitted for further management evaluation Hospital course: Patient admitted to medical floor with a diagnosis of cystic pancreatic neoplasm--Seen by Dr. Matt(GI) she recommended EUS/FNA patient was transferred to [facility] on January 25 for the procedure and returned back the same day, patient was found to have a complex cystic lesion in the pancreatic head, fine needle aspiration for fluid was performed, cytology reports are pending differential includes pseudocyst, cystic neoplasm, IPMN postprocedure patient has been doing fine tolerating diet he is recommended to follow up with primary care physician and with Dr. Matt to obtain biopsy result. Leukocytosis seems reacted with no evidence of infection and no signs of sepsis, urinalysis is unremarkable basis of lungs are clear In regard to moderate protein calorie malnutrition patient is recommended to take protein supplements and has been strongly advised to abstain from smoking he is recommended to continue nicotine patch. Hypokalemia resolved In regard to moderate protein calorie malnutrition his recommended to take protein supplements Time Spent with Patient Time attestation: Total time spent providing and/or coordinating discharge services: Discharge coordination time: Greater than 30 minutes Quality: Stroke Does the patient have a stroke diagnosis?: No Physical Exam Vital Signs: Vital Signs: Last Vital Signs Temp 98.3 F 01/26/21 11:51 Pulse 71 01/26/21 11:51 Resp 16 01/26/21 11:51 BP 125/69 01/26/21 11:51 Pulse Ox 100 01/26/21 11:51 Body Mass Index 21.6 Gen: cachectic HEENT: sclera anicteric, moist mucus membranes Neck: supple Lungs: clear to auscultation bilaterally Heart: regular rate and rhythm, no murmurs Abd: soft, nontender, bs pos. Ext: no edema Skin: warm/well-perfused Neuro: alert and oriented x3, no focal findings Psych: appropriate affect ? Discharge Plan Discharge Anticipated Discharge Date/Time: 01/26/21 12:44 Patient Disposition: Home, Self-Care Discharge Diagnosis: Cystic pancreatic mass associated with weight loss Referrals: Physician,Unknown [Primary Care Provider] - 1 Week Discharge Medications: Continued nicotine 14 mg/24 hr Patch 24 Hour 1 patch TRANSDERMAL DAILY RF: 0 magnesium oxide 420 mg Tablet 420 mg PO DAILY RF: 0 sucralfate 1 gram Tablet 1 g PO QID RF: 0 thiamine HCl (vitamin B1) 100 mg Tablet 100 mg PO DAILY RF: 0 acetaminophen 500 mg Tablet 1,000 mg PO TID RF: 0 mirtazapine [Remeron] 30 mg Tablet 30 mg PO BEDTIME RF: 0 folic acid 1 mg Tablet 1 mg PO DAILY RF: 0 omeprazole 20 mg Tablet,Delayed Release (Dr/Ec) 40 mg PO BID RF: 0 cholecalciferol (vitamin D3) [Vitamin D3] 50 mcg (2,000 unit) Tablet 50 mcg PO DAILY RF: 0 Discharge Orders: Discharge Order (Routine); Ordered 01/26/21 Ordered By: Jayme Mayer Diet: advance to usual diet Activity on Discharge: As tolerated Stand Alone Forms: Patient Portal Discharge page Care Plan Goals: Pancreatic mass status post Upper endoscopic biopsy of pancreatic mass at [facility], fine needle aspiration for fluid has been performed, cytology results are pending follow-up with PCP to obtain results of biopsy. Health Concerns: strongly recommend to abstain from smoking. Plan of Treatment: Follow-up with PCP in 1 week, follow-up with Dr. Matt from Gastroenterology in next 7-10 days. Assessment: as above
--- NOTE | 2021-01-26 13:04 | MHC.CM.PN ---
PATIENT IS DISCHARGED HOME WITH RESUMPTION OF HIS PRIVATE DUTY SERVICES. PATIENT WILL NEED [facility] RIDE HOME.
--- NOTE | 2021-01-27 11:32 | MHC.CM.PN ---
POST DISCHARGE NOTE - PATIENT NOW HAS A FOLLOW UP APPOINTMENT WITH DR LEÓN OF [facility] SCHEDULED TIME IS Saturday @ 1100. PATIENT AWARE THAT HE WILL ALSO RECEIVE AN APPOINTMENT LETTER FROM [facility].
== END 2021-01-26 14:21 | disposition home or self-care (01) | DRG 375 ==
LOC: HO.ED 21:08 → HO.EDOVER 22:19 → HO.S3 23:00
PROVIDERS: Internal Medicine; Nurse Practitioner Family; Admitting Provider Internal Medicine; Emergency Provider Emergency Medicine; PCP Family Medicine; Visit Provider Hospitalist
DX: D37.8 Neoplasm of uncertain behavior of other specified digestive organs (principal); E44.0 Moderate protein-calorie malnutrition; D72.829 Elevated white blood cell count, unspecified; F17.210 Nicotine dependence, cigarettes, uncomplicated; Z71.6 Tobacco abuse counseling; Z20.822 Contact with and (suspected) exposure to COVID-19; Z68.21 Body mass index [BMI] 21.0-21.9, adult; Z79.899 Other long term (current) drug therapy
CPT/HCPCS: 36415; 74177; 80048; 80076; 81003; 82378; 82550; 83605; 83690; 83735; 84484; 85025; 85027; 85610; 86301; 87040; 87635; 93005; 96374; 96375; 99285; J2270; Q9967

== ENCOUNTER 2021-01-30 12:42 | Emergency (ER) | payer OTHER, MEDICARE, SELFPAY ==
--- NOTE | ~2021-01-30 | XR_ITS ---
EXAMINATION: XR CHEST CLINICAL INFORMATION: Chest pain and SOB. COMPARISON: Chest 01/08/2020 TECHNIQUE: Frontal view of the chest was obtained. FINDINGS: Both lungs are well-expanded and clear. The heart size and pulmonary vascularity is normal. No gross bony abnormality seen. XR/XR chest 1V IMPRESSION: Unremarkable chest exam.
[2021-01-30 13:04] VITALS: BP 150/79; PULSE 88; RESP 18; TEMP 36.9; O2SAT 100; BMI 15.0
--- NOTE | 2021-01-30 13:05 | ED_ITS ---
HPI - General Adult General Chief complaint: General Medical Stated complaint: ABD PAIN, FTT Time Seen by Provider: 01/30/21 14:42 Source: patient Mode of arrival: ambulatory Limitations: no limitations History of Present Illness HPI narrative: Patient presents to the ED for abdominal pain and failure to thrive. patient recently discharged from the hospital with same complaints. Pateint during hospitlazations was offered to go to rehab, but refused. patient is presently agreable to rehab if medically cleared. Patient states no appeitite. patient states generalized abdominal pain. Patient waiting results of pancreatic biopsy. Patient states no URI symptoms or urinary symptoms Related Data Home Medications Medication Instructions Recorded Confirmed acetaminophen 500 mg tablet 1,000 mg PO TID 01/20/21 01/20/21 cholecalciferol (vitamin D3) 50 50 mcg PO DAILY 01/20/21 01/20/21 mcg (2,000 unit) tablet (Vitamin D3) folic acid 1 mg tablet 1 mg PO DAILY 01/20/21 01/20/21 magnesium oxide 420 mg tablet 420 mg PO DAILY 01/20/21 01/20/21 mirtazapine 30 mg tablet (Remeron) 30 mg PO BEDTIME 01/20/21 01/20/21 nicotine 14 mg/24 hr daily 1 patch TRANSDERMAL DAILY 01/20/21 01/20/21 transdermal patch omeprazole 20 mg tablet,delayed 40 mg PO BID 01/20/21 01/20/21 release sucralfate 1 gram tablet 1 g PO QID 01/20/21 01/20/21 thiamine HCl (vitamin B1) 100 mg 100 mg PO DAILY 01/20/21 01/20/21 tablet Allergies Allergy/AdvReac Type Severity Reaction Status Date / Time Penicillins [PENICILLINS] Allergy Intermediate SWELLING Unverified 02/25/20 17:41 lisinopril [LISINOPRIL] Allergy Unknown ANGIOEDEMA Unverified 02/25/20 17:41 Review of Systems Review of Systems: Yes all other systems are reviewed and are negative Constitutional: Constitutional: Reports as per HPI and Reports no additional constitutional complaints Eyes: Eyes: Reports as per HPI and Reports no additional eye complaints ENT: Reports system reviewed and no additional complaints, except as docu mented and Reports as per HPI Cardiovascular: Cardiovascular: Reports as per HPI and Reports no additional cardiovascular complaints Respiratory: Respiratory: Reports as per HPI and Reports no additional respiratory complaints Gastrointestinal: Gastrointestinal: Reports as per HPI, Reports no additional gastrointestinal complaints and Reports abdominal pain Comments: loss of appettie. Genitourinary: Genitourinary: Reports no additional male genitourinary complaints and Reports as per HPI Musculoskeletal: Musculoskeletal: Reports no additional musculoskeletal complaints and Reports as per HPI Neurologic: Reports system reviewed and no additional complaints, except as documented and Reports as per HPI Psychiatric: Psychiatric: Reports no additional psychiatric complaints and Reports as per HPI [facility] Past Medical History Medical History (Updated 01/30/21 @ 18:53 by HILARIA Alvarenga) Alcohol abuse Hemorrhage of anastomosis due to ulcer Surgical History History of partial gastrectomy Social History Social History Household Members: None Housing: Apartment Do you presently have visiting nurse or other home services: Yes (Saturday for 3 hours. visiting Aide) Patient Tobacco Use Status: Current everyday Tobacco user Tobacco use type: Cigarette Second Hand Smoke Exposure: No Substance Use Type: Marijuana Advance Directives: No Advance Directives Information Provided: No service: Yes Current occupational status: retired Physical Exam Vital Signs: Vital Signs: Last Vital Signs Temp 98.5 F 01/30/21 13:04 Pulse 88 01/30/21 13:04 Resp 18 01/30/21 13:04 BP 150/79 H 01/30/21 13:04 Pulse Ox 100 01/30/21 13:04 Body Mass Index 15.0 Const: Other: cachetic, thin General: cooperative, healthy appearing, comfortable, no acute distress, well developed, alert and awake Orientation/consciousness: patient oriented x3 HENMT: Head: Yes normal to inspection, Yes No palpable skull fracture present, Yes normocephalic and Yes atraumatic Eyes: General: appearance normal, both eyes and all related structures Neck: Neck: Yes normal visual inspection, Yes full ROM, Yes no lymphadenopathy, Yes no meningeal signs, Yes trachea midline, Yes supple and No tender Chest: Chest palpation & inspection: normal inspection of the chest and normal palpation of entire chest wall Resp: Effort & Inspection: normal respiratory effort and able to speak in c omplete sentences Auscultation: clear to auscultation bilaterally Cardio: Jugular venous distension: no JVD Heart sounds: S1 normal heart sound present and S2 normal heart sound present GI: Inspection: Yes normal to inspection and No abdominal wall ecchymosis Palpation (GI): Soft to palpation, not firm, Tenderness to palpation present (GI) (generalized), no guarding and not rigid : General: No CVA tenderness and Yes no CVA tenderness Back/Spine/Pelvis: Back: no CVA tenderness, No CVA tenderness and No back tenderness Skin: General skin exam: no rashes or lesions noted and elasticity normal Neuro: General: patient oriented x3, no meningeal signs and CN's II-XI intact bilaterally Extrem: General: Yes normal to inspection and Yes full ROM Psych: Appearance: grossly normal, well kempt and not disheveled Course Course Course Narrative: Patient will have medical evalatuion. Reevaluation(s) Reevaluation #1: Patient labs are at baseline. patient usually has elevated WBC. No need for repeat Abdominal Scan. patient had abdominal CT scan on 01/23 which shows possible pancreatric CA. Patient having bowel movements. Patient states having same symptoms for months of loss of appettitie, chronic abdomina pain, and weight loss. Labs are baseline and UA is negative. EKG negative stemi. Troponin is 5.7 after having symptoms for the past couple of months. Plan is for case management and PT in the morning for REhab placement. Electrolytes normal. Will order second troponin. Sign out to HILARIA Craig Time: 18:30 Medical Decision Making Lab Data Result diagrams: 01/30/21 13:32 01/30/21 13:32 Labs: Lab Results 01/30/21 01/30/21 01/30/21 Range/Units 13:32 13:32 13:32 WBC 16.1 H (4.8-10.8) X10*3/uL RBC 4.35 L (4.60-5.80) X10*6/uL Hgb 12.9 L (14.0-18.0) g/dl Hct 39.7 L (42-52) % MCV 91.3 (80-98) fL MCH 29.7 (27.0-33.0) pg MCHC 32.5 (31.0-36.0) g/dl RDW 13.9 (11.0-16.0) % Plt Count 283 (160-400) X10*3/uL MPV 9.4 (9.4-12.4) fL Immature Gran % (Auto) 0.7 H (0.0-0.4) % Neut % (Auto) 81.9 H (45-73) % Lymph % (Auto) 8.4 L (20-40) % [place] % (Auto) 8.5 (2-11) % Eos % (Auto) 0.3 (0-4) % Baso % (Auto) 0.2 (0-2) % Lymph # (Auto) 1.4 (1.2-4.9) X10*3/uL [place] # (Auto) 1.4 H (0.1-1.2) X10*3/uL Eos # (Auto) 0.1 (0.0-0.4) X10*3/uL Baso # (Auto) 0.0 (0.0-0.2) X10*3/uL Abs Immat Gran (auto) 0.12 H (0.00-0.03) X10*3/uL Absolute Neuts (auto) 13.1 H (2.0-8.3) X10*3/uL Absolute Nucleated RBC 0.000 (0.0-0.012) X10*3/uL Nucleated RBC % (auto) 0.0 (0.0-0.2) /100WBC PT 12.2 (9.9-13.0) SEC INR 1.1 (0.9-1.1) APTT 30.3 (24.1-38.0) SEC Sodium 142 (135-145) mmol/L Potassium 3.3 (3.3-5.1) mmol/L Chloride 106 (96-108) mmol/L Carbon Dioxide 27 (22-29) mmol/L Anion Gap 12 (12-20) BUN 6 L (9-16) mg/dL Creatinine 0.72 (0.5-1.4) mg/dL Estim Creat Clear Calc 61.4 Estimated GFR > 60 Random Glucose 109 (60-115) mg/dL Calcium 7.8 L (8.4-10.2) mg/dL Magnesium 2.1 (1.6-2.6) mg/dL Total Bilirubin 0.7 (0.0-1.0) mg/dL Direct Bilirubin 0.3 (0.0-0.5) mg/dL AST 11 (5-37) U/L ALT 9 (0-40) U/L Alkaline Phosphatase 122 H (39-117) U/L Troponin I High Sens (<3.5-35.0) ng/L Total Protein 5.2 L (6.5-8.0) g/dL Albumin 2.6 L (3.5-5.0) g/dL Lipase < 4 L (8-78) U/L Urine Color Urine Appearance Urine pH (5.0-8.0) Ur Specific [place] (1.005-1.025) Urine Protein (NEG-TRACE) MG/DL Urine Glucose (UA) (NEG) MG/DL Urine Ketones (NEG) MG/DL Urine Blood (NEG) Urine Nitrite (NEG) Ur Leukocyte Esterase (NEG) 01/30/21 01/30/21 Range/Units 13:32 17:11 WBC (4.8-10.8) X10*3/uL RBC (4.60-5.80) X10*6/uL Hgb (14.0-18.0) g/dl Hct (42-52) % MCV (80-98) fL MCH (27.0-33.0) pg MCHC (31.0-36.0) g/dl RDW (11.0-16.0) % Plt Count (160-400) X10*3/uL MPV (9.4-12.4) fL Immature Gran % (Auto) (0.0-0.4) % Neut % (Auto) (45-73) % Lymph % (Auto) (20-40) % [place] % (Auto) (2-11) % Eos % (Auto) (0-4) % Baso % (Auto) (0-2) % Lymph # (Auto) (1.2-4.9) X10*3/uL [place] # (Auto) (0.1-1.2) X10*3/uL Eos # (Auto) (0.0-0.4) X10*3/uL Baso # (Auto) (0.0-0.2) X10*3/uL Abs Immat Gran (auto) (0.00-0.03) X10*3/uL Absolute Neuts (auto) (2.0-8.3) X10*3/uL Absolute Nucleated RBC (0.0-0.012) X10*3/uL Nucleated RBC % (auto) (0.0-0.2) /100WBC PT (9.9-13.0) SEC INR (0.9-1.1) APTT (24.1-38.0) SEC Sodium (135-145) mmol/L Potassium (3.3-5.1) mmol/L Chloride (96-108) mmol/L Carbon Dioxide (22-29) mmol/L Anion Gap (12-20) BUN (9-16) mg/dL Creatinine (0.5-1.4) mg/dL Estim Creat Clear Calc Estimated GFR Random Glucose (60-115) mg/dL Calcium (8.4-10.2) mg/dL Magnesium (1.6-2.6) mg/dL Total Bilirubin (0.0-1.0) mg/dL Direct Bilirubin (0.0-0.5) mg/dL AST (5-37) U/L ALT (0-40) U/L Alkaline Phosphatase (39-117) U/L Troponin I High Sens 5.7 (<3.5-35.0) ng/L Total Protein (6.5-8.0) g/dL Albumin (3.5-5.0) g/dL Lipase (8-78) U/L Urine Color DARK YELLOW Urine Appearance HAZY Urine pH 7.0 (5.0-8.0) Ur Specific [place] 1.020 (1.005-1.025) Urine Protein TRACE (NEG-TRACE) MG/DL Urine Glucose (UA) NEG (NEG) MG/DL Urine Ketones 5 (NEG) MG/DL Urine Blood NEG (NEG) Urine Nitrite NEG (NEG) Ur Leukocyte Esterase NEG (NEG) Discharge Plan Discharge Clinical Impression: Pancreatic mass Prescriptions: No Action nicotine 14 mg/24 hr Patch 24 Hour 1 patch TRANSDERMAL DAILY RF: 0 magnesium oxide 420 mg Tablet 420 mg PO DAILY RF: 0 sucralfate 1 gram Tablet 1 g PO QID RF: 0 thiamine HCl (vitamin B1) 100 mg Tablet 100 mg PO DAILY RF: 0 acetaminophen 500 mg Tablet 1,000 mg PO TID RF: 0 mirtazapine [Remeron] 30 mg Tablet 30 mg PO BEDTIME RF: 0 folic acid 1 mg Tablet 1 mg PO DAILY RF: 0 omeprazole 20 mg Tablet,Delayed Release (Dr/Ec) 40 mg PO BID RF: 0 cholecalciferol (vitamin D3) [Vitamin D3] 50 mcg (2,000 unit) Tablet 50 mcg PO DAILY RF: 0
--- NOTE | 2021-01-30 13:11 | ECG_ITS ---
Test Reason : ABD PAIN Blood Pressure : / mmHG Vent. Rate : 083 BPM Atrial Rate : 083 BPM P-R Int : 160 ms QRS Dur : 076 ms QT Int : 356 ms P-R-T Axes : 078 056 082 degrees QTc Int : 418 ms Normal sinus rhythm Normal ECG When compared with ECG of 20-JAN-2021 15:20, No significant change was found Referred By: Jarrett Rm Electronically Signed By:HERMELINDA MONTANEZ
[2021-01-30 13:46] LABS: MANUAL DIFF FLAG NO
[2021-01-30 13:51] LABS: Basophils Percent Auto 0.2 % (0-2); Eosinophils Absolute Auto 0.1 X10*3/uL (0.0-0.4); Eosinophils Percent Auto 0.3 % (0-4); Hematocrit 39.7 % (42-52); Hemoglobin 12.9 g/dl (14.0-18.0); Imm Gran Abs Auto 0.12 X10*3/uL (0.00-0.03); Imm Gran Pct Auto 0.7 % (0.0-0.4); Lymphocytes Absolute Auto 1.4 X10*3/uL (1.2-4.9); Lymphocytes Percent Auto 8.4 % (20-40); Mean Corpuscular HGB Conc 32.5 g/dl (31.0-36.0); Mean Corpuscular Hemoglobin 29.7 pg (27.0-33.0); Mean Corpuscular Volume 91.3 fL (80-98); Mean Platelet Volume 9.4 fL (9.4-12.4); Monocytes Absolute Auto 1.4 X10*3/uL (0.1-1.2); Monocytes Percent Auto 8.5 % (2-11); Neutrophils Absolute Auto 13.1 X10*3/uL (2.0-8.3); Neutrophils Percent Auto 81.9 % (45-73); Platelet Count 283 X10*3/uL (160-400); Red Blood Count 4.35 X10*6/uL (4.60-5.80); Red Cell Distribution Width 13.9 % (11.0-16.0); White Blood Count 16.1 X10*3/uL (4.8-10.8)
[2021-01-30 13:56] LABS: INTERNATIONAL NORM RATIO 1.1 (0.9-1.1); Prothrombin Time 12.2 SEC (9.9-13.0)
[2021-01-30 13:59] LABS: Partial Thromboplastin Time 30.3 SEC (24.1-38.0)
[2021-01-30 14:14] LABS: Troponin-I High Sensitivity 5.7 ng/L (<3.5-35.0)
[2021-01-30 14:25] LABS: Alanine Aminotransferase 9 U/L (0-40); Albumin Level 2.6 g/dL (3.5-5.0); Alkaline Phosphatase 122 U/L (39-117); Anion Gap 12 (12-20); Aspartate Amino Transferase 11 U/L (5-37); Bilirubin Direct 0.3 mg/dL (0.0-0.5); Bilirubin Total 0.7 mg/dL (0.0-1.0); Blood Urea Nitrogen 6 mg/dL (9-16); Calcium 7.8 mg/dL (8.4-10.2); Carbon Dioxide 27 mmol/L (22-29); Chloride 106 mmol/L (96-108); Creatinine Clr Calc Pharmacy 61.4; Estimated Glomerular Filt Rate > 60; Glucose Random 109 mg/dL (60-115); Lipase < 4 U/L (8-78); Magnesium 2.1 mg/dL (1.6-2.6); Potassium 3.3 mmol/L (3.3-5.1); Sodium 142 mmol/L (135-145); Total Protein 5.2 g/dL (6.5-8.0)
--- NOTE | 2021-01-30 16:46 | MHC.CM.ED ---
pt was just dc'd home from our e.d. p refusing to go to snf.? now he is back and willing to go to [facility].? we will need a PT eval? and pt would like to go to [facility] , [place] for which a ref. has been made. a request for a PT eval was made of PA in the e.d.? ?pt should dc tomorrow, 01/31/21, cm to cont.to follow.
[2021-01-30 17:18] LABS: Glucose Urine UA NEG (NEG); Leukocyte Esterase Urine NEG (NEG); Nitrite Urine NEG (NEG); Urine Blood NEG (NEG); Urine Ketones 5 MG/DL (NEG); Urine Protein TRACE MG/DL (NEG-TRACE)
[2021-01-30 17:21] LABS: Appearance Urine HAZY; Color Urine DARK YELLOW
[2021-01-30 19:50] LABS: COVID-19 Test Negative (Negative)
[2021-01-30 20:03] LABS: Troponin-I High Sensitivity 7.7 ng/L (<3.5-35.0)
[2021-01-30] MEDS: 0.9 % Sodium Chloride 1,000 ML 999 ML IV (20:51)
[2021-01-30 21:16] VITALS: BP 156/89; PULSE 84; RESP 18; TEMP 37; O2SAT 100
--- NOTE | 2021-01-30 21:40 | PC.NURSE ---
URINAL EMPTIED OF APROX 200 CC'S DARK URINE. PT GIVEN ICE WATER AND SHERBET. PT AWAKE AND ALERT.
[2021-01-31 00:23] VITALS: BP 129/74; PULSE 82
[2021-01-31 06:48] VITALS: BP 129/81; PULSE 84; RESP 14
[2021-01-31 07:37] VITALS: BP 129/81; PULSE 84
--- NOTE | 2021-01-31 08:14 | PC.NURSE ---
dorcas. carlos enrique rubio,
[2021-01-31 10:13] VITALS: BP 131/81; PULSE 82; RESP 18; O2SAT 98
--- NOTE | 2021-01-31 11:45 | MHC.CM.PN ---
CURRENTLY NO BED OFFERS. [facility] AND POTENTIALLY OFFER; HOWEVER, PATIENT IS REFUSING THAT FACILITY. BED SEARCH CURRENTLY IN PROGRESS. [facility] WILL NOT HAVE A BED UNTIL SATURDAY OR SATURDAY, IF EVN ABLE TO OFFER. CASE MANAGEMENT CONTINUING TO FOLLOW
--- NOTE | 2021-01-31 13:10 | MHC.CM.PN ---
PATIENT TO TRANSFER TO [facility] FOR 1330 VIA [facility]. PATIENT PREVIOUSLY ACCEPTED [place] BED OFFER. RN AND UNIT NOW AWARE. COVID VACCINATION CARD AND HCP UPLOADED INTO [employer].
== END 2021-01-31 14:00 | disposition skilled nursing facility (03) ==
PROVIDERS: Physician Assistant; Emergency Provider Internal Medicine; PCP Family Medicine
DX: R19.09 Other intra-abdominal and pelvic swelling, mass and lump (principal); R10.9 Unspecified abdominal pain; R62.7 Adult failure to thrive; F12.90 Cannabis use, unspecified, uncomplicated; F17.210 Nicotine dependence, cigarettes, uncomplicated; Z71.6 Tobacco abuse counseling; Z79.899 Other long term (current) drug therapy; Z20.822 Contact with and (suspected) exposure to COVID-19
CPT/HCPCS: 36415; 71045; 80053; 81003; 82248; 83690; 83735; 84484; 85025; 85610; 85730; 87635; 93005; 96360; 97161; 99285

== ENCOUNTER 2021-02-12 03:45 | Inpatient (IN) | payer OTHER, MEDICARE, SELFPAY ==
[2021-02-12] VITALS (21 sets, daily range): BP systolic 76–160; BP diastolic 39–110; PULSE 96–122; RESP 5–16; O2SAT 97–100
--- NOTE | ~2021-02-12 | CT_ITS ---
EXAMINATION: CT HEAD WITHOUT CONTRAST CLINICAL INFORMATION: Altered mental status COMPARISON: None TECHNIQUE: Contiguous axial imaging was performed from the skull base to vertex without intravenous administration of contrast. This CT examination was performed using dose optimization techniques as appropriate, variously including the following: *Automated exposure control *Adjustment of mA and/or kV according to patient size (this includes techniques or standardized protocols for targeted exams where dose is matched to indication/reason for exam; i.e. extremities or head) *Use of iterative reconstruction technique DLP: 684 mGy-cm FINDINGS: There is no evidence of acute intracranial hemorrhage or edematous territorial infarction. No abnormal mass effect or midline shift is seen. [place] to white matter differentiation is well preserved. No extra-axial fluid collections are identified. The ventricles are normal in size. Mild to moderate periventricular and deep white matter hypodensities having the appearance of chronic microangiopathic ischemic changes. The osseous structures and soft tissues are normal. The mastoid air cells and visualized portions of the paranasal sinuses are well aerated. CT/CT head/brain wo con IMPRESSION: No CT evidence of acute intracranial pathology. Chronic changes as detailed above.
--- NOTE | 2021-02-12 04:35 | ED_ITS ---
HPI - General Adult General Chief complaint: Failure to Thrive Stated complaint: ams Time Seen by Provider: 02/12/21 04:31 Source: EMS Mode of arrival: EMS Limitations: altered mental status History of Present Illness HPI narrative: Patient is coming from a care home in [place]. According to EMS, they were told by the nurse who does not know the patient that he has been altered since last night, they are not familiar with the patient, but they know that he has been diagnosed with pancreatic cancer. Supposedly, the patient's baseline is alert and oriented x3. Our charge nurse called the nursing facility to get more information. The information that the charge nurse received from the same nurse varied: Initially they stated that the patient has been alert and oriented x3 walking and talking for the last 4 days, then for the last 2 days and then for 1 day. Then they admitted that they only have traveling nurses who do know the patient well, they did did not write any notes for the last 4 days, so they do not really know what has happened with the patient. The patient only wakes up with sternal rub. Patient known to have pancreatic cancer. The MOLDS shows that patient is set to resuscitate, do not intubate Related Data Home Medications Medication Instructions Recorded Confirmed acetaminophen 500 mg tablet 1,000 mg PO TID 01/20/21 01/30/21 cholecalciferol (vitamin D3) 50 50 mcg PO DAILY 01/20/21 01/30/21 mcg (2,000 unit) tablet (Vitamin D3) folic acid 1 mg tablet 1 mg PO DAILY 01/20/21 01/30/21 magnesium oxide 420 mg tablet 420 mg PO DAILY 01/20/21 01/30/21 mirtazapine 30 mg tablet (Remeron) 30 mg PO BEDTIME 01/20/21 01/30/21 nicotine 14 mg/24 hr daily 1 patch TRANSDERMAL DAILY 01/20/21 01/30/21 transdermal patch omeprazole 20 mg tablet,delayed 40 mg PO BID 01/20/21 01/30/21 release sucralfate 1 gram tablet 1 g PO QID 01/20/21 01/30/21 thiamine HCl (vitamin B1) 100 mg 100 mg PO DAILY 01/20/21 01/30/21 tablet Allergies Allergy/AdvReac Type Severity Reaction Status Date / Time Penicillins [PENICILLINS] Allergy Intermediate SWELLING Verified 02/12/21 06:34 lisinopril [LISINOPRIL] Allergy Unknown ANGIOEDEMA Verified 02/12/21 06:34 Review of Systems Review of Systems: Yes Unobtainable due to mental condition PMFSH Past Medical History Medical History Alcohol abuse Hemorrhage of anastomosis due to ulcer Surgical History History of partial gastrectomy Social History Social History Household Members: None Housing: Apartment Do you presently have visiting nurse or other home services: Yes (Saturday for 3 hours. visiting Aide) Patient Tobacco Use Status: Current everyday Tobacco user Tobacco use type: Cigarette Second Hand Smoke Exposure: No Substance Use Type: Marijuana Advance Directives: Yes Advance Directives Information Provided: Yes Advance Directives on File: Yes Advance Directives Date on File: 02/01/21 service: Yes Current occupational status: retired Physical Exam Vital Signs: Vital Signs: Last Vital Signs Pulse 122 H 02/12/21 08:34 Resp 11 L 02/12/21 08:34 BP 124/83 02/12/21 08:34 Pulse Ox 100 02/12/21 08:34 Const: Other: Appearance: Altered, weeks up to sternal rub, when awake the patient seems to be in pain, patient is cachectic, seems that the patient is at the end of life Eyes: Pupils equal, round and sluggishly reactive to light. ENT: Dry mucous membranes Neck: Normal inspection. Neck supple. CVS: Normal heart rate and rhythm. Pulses normal. Normal S1 and S2 Respiratory: Clear breath sounds, patient's respiratory rate between 6-8 Abdomen: Soft Skin: Skin warm and dry. Extremities: No lower extremity edema. Neuro: Difficult to assess, patient unable to cooperate with exam, seems to be moving all extremities Course Course Course Narrative: Patient's healthcare proxy is his nephew Willie. We contacted him, who is currently in a trip in [place]. I discussed with the nephew that the patient is lethargic, respirations are 6 to 8, which could be due to respiratory depression from a new rx for opioids, but overall the patient appears to be at end of life. I discussed with the nephew that his uncle is in the emergency room, also discussed the patient's current code status. His current MOLDS form shows that the patient is to be resuscitated but not intubated. I discussed with the patient's nephew that he would be recommended to have the code status be either DNR+DNI or full code rather than half and half. I also discussed with the patient's nephew that it is likely that his uncle is at the end of his life. The nephew decided to make him full code, states he is in [place] and will return on February 20. Initially we attempted getting labs, patient was getting stuck multiple times, we were able to get an IV line but no blood work. I called the patient's nephew back discussed with him that I need to insert a central line. We explained to him what the procedure involves, then he decided that it would be best to make his uncle LOCKSTITCH LINING MAKER. Patient's nurse also spoke to the patient's nephew Willie, who decided given the circumstances to make Mr. Seay LOCKSTITCH LINING MAKER. Patient has an IV line in place now, given 1 mg Ativan as he gets agitated easily. Medications for LOCKSTITCH LINING MAKER have been ordered including morphine and atropine. This morning as we called the care home to get more information from the morning shift, the staff informed us that the patient has an appointment pending in [facility] to discuss a pathology report for a pancreatic mass that is suspcious to be malignant, but there is no confirmation yet. I discussed the patient with our hospitalist, in the meantime while we get the pathology results from [facility], we'll obtain labs, do a head CT. In the meantime vitals stable. At 08:45, me and Dr. Negrete called the patient's nephew Willie to give him an update, as mentioned above, patient looks that he is in the end of his life, the nephew wishes to continue LOCKSTITCH LINING MAKER Sign out given to Dr. Negrete Medical Decision Making Lab Data Result diagrams: 02/12/21 08:28 02/12/21 08:28 Labs: Lab Results 02/12/21 02/12/21 Range/Units 08:28 08:28 WBC 10.4 (4.8-10.8) X10*3/uL RBC 4.15 L (4.60-5.80) X10*6/uL Hgb 12.2 L (14.0-18.0) g/dl Hct 35.0 L (42-52) % MCV 84.3 (80-98) fL MCH 29.4 (27.0-33.0) pg MCHC 34.9 (31.0-36.0) g/dl RDW 14.9 (11.0-16.0) % Plt Count 206 D (160-400) X10*3/uL MPV 10.1 (9.4-12.4) fL Immature Gran % (Auto) 0.8 H (0.0-0.4) % Neut % (Auto) 82.0 H (45-73) % Lymph % (Auto) 8.8 L (20-40) % [place] % (Auto) 7.8 (2-11) % Eos % (Auto) 0.5 (0-4) % Baso % (Auto) 0.1 (0-2) % Lymph # (Auto) 0.9 L (1.2-4.9) X10*3/uL [place] # (Auto) 0.8 (0.1-1.2) X10*3/uL Eos # (Auto) 0.1 (0.0-0.4) X10*3/uL Baso # (Auto) 0.0 (0.0-0.2) X10*3/uL Abs Immat Gran (auto) 0.08 H (0.00-0.03) X10*3/uL Absolute Neuts (auto) 8.5 H (2.0-8.3) X10*3/uL Absolute Nucleated RBC 0.000 (0.0-0.012) X10*3/uL Nucleated RBC % (auto) 0.0 (0.0-0.2) /100WBC Lactic Acid 1.4 (0.5-2.0) mmol/L Discharge Plan Discharge Clinical Impression: Altered mental state Patient Disposition: Admitted As Inpatient
[2021-02-12] MEDS: LORazepam 2 MG/ML VIAL 1 MG IVPUSH (04:41)
--- NOTE | 2021-02-12 04:44 | PC.NURSE ---
Several unsuccessful PIV attempts by this RN, Wilfred RN, Melody RN- pt unable to tolerate procedure, objective signs of pain noted with all attempts at minor repositioning of limbs. Pt grimacing, clenching teeth, flexing limbs in resistance to movement. Once PIV was placed, unable to obtain blood in sufficient quality for labwork. Pt remained agitated throughout, required assistance from [address] and secure IV. Pt medicated per MAR prior to reattempting lab or urine collection
[2021-02-12] MEDS: 0.9 % Sodium Chloride 1,000 ML 999 ML IVCONT ×2 (04:49→08:25)
--- NOTE | 2021-02-12 05:01 | PC.NURSE ---
RN CALLED TO SPEAK HCP AYSE (NEPHEW), AND EXPLAINED PT AGITATED WHEN TOUCHED, VERY FRAIL, AND HYPOTENSIVE. RESP DROPPING TO 6 AT TIMES W/ RAILS THROUGHOUT. PTS NEPHEW EXPRESSED UNDERSTANDING OF THE SITUATION, AND SPOKE W/DR. HEATON WHO DISCUSSED PURSUING MORE AGGRESSIVE TX VS. CHANGING PTS STATUS TO FISH HATCHERY WORKER. PER AYSE PTS STATUS TO BE CHANGED TO FISH HATCHERY WORKER AT THIS TIME.
[2021-02-12] MEDS: Morphine Sulfate 2 MG/ML CARTRIDGE 1 MG IVPUSH (05:26)
[2021-02-12] MEDS: Atropine Sulfate 1 % Ophth Sol 2 ML BOTTLE 2 DROP SUBLINGUAL (05:50)
[2021-02-12] MEDS: Morphine Sulfate/NS 100 MG/100 ML PLAST..BAG IVCONT ×2 (06:24→10:43)
--- NOTE | 2021-02-12 07:29 | PC.NURSE ---
On phone with nephew. States he hasn't known much about pt's health because he lived a very private life . [facility] But stopped getting treament because of a medication he didn't like.
--- NOTE | 2021-02-12 07:37 | PC.NURSE ---
Onphone with ganga RN from [facility]. notes indicate that PA at [facility] wants onco involved to check the pathology reports . references Dr. Matt for follow up. Ernie has been at [facility] since 01/31. baseline in last few days: talking, sml amouts, requesting pain meds, then last night was restless and needed sitter. had IV at [facility] for decreased po intake. Has been covid negative and is on the rehab unit.
--- NOTE | 2021-02-12 07:47 | PC.NURSE ---
Doc Raúl on phone with Willie, nephew and HCP, nephew giving permission to obtain, labs, do additional testing and a central line if necessary.
[2021-02-12 08:33] LABS: MANUAL DIFF FLAG NO
[2021-02-12 08:38] LABS: Basophils Percent Auto 0.1 % (0-2); Eosinophils Absolute Auto 0.1 X10*3/uL (0.0-0.4); Eosinophils Percent Auto 0.5 % (0-4); Hemoglobin 12.2 g/dl (14.0-18.0); Imm Gran Abs Auto 0.08 X10*3/uL (0.00-0.03); Imm Gran Pct Auto 0.8 % (0.0-0.4); Lymphocytes Absolute Auto 0.9 X10*3/uL (1.2-4.9); Lymphocytes Percent Auto 8.8 % (20-40); Mean Corpuscular HGB Conc 34.9 g/dl (31.0-36.0); Mean Corpuscular Hemoglobin 29.4 pg (27.0-33.0); Mean Corpuscular Volume 84.3 fL (80-98); Mean Platelet Volume 10.1 fL (9.4-12.4); Monocytes Absolute Auto 0.8 X10*3/uL (0.1-1.2); Monocytes Percent Auto 7.8 % (2-11); Neutrophils Absolute Auto 8.5 X10*3/uL (2.0-8.3); Platelet Count 206 X10*3/uL (160-400); Red Blood Count 4.15 X10*6/uL (4.60-5.80); Red Cell Distribution Width 14.9 % (11.0-16.0); White Blood Count 10.4 X10*3/uL (4.8-10.8)
[2021-02-12 08:44] LABS: Lactic Acid 1.4 mmol/L (0.5-2.0)
[2021-02-12 08:46] LABS: INTERNATIONAL NORM RATIO 2.9 (0.9-1.1); Prothrombin Time 33.7 SEC (9.9-13.0)
[2021-02-12 08:48] LABS: Glucose Urine UA NEG (NEG); Leukocyte Esterase Urine NEG (NEG); Nitrite Urine NEG (NEG); Specific Gravity - Urine 1.015 (1.005-1.025); Urine Blood NEG (NEG); Urine Ketones NEG (NEG); Urine Protein TRACE MG/DL (NEG-TRACE)
[2021-02-12 08:49] LABS: Appearance Urine CLEAR; Color Urine YELLOW
[2021-02-12] MEDS: Morphine Sulfate 4 MG/ML CARTRIDGE IVPUSH (08:49)
--- NOTE | 2021-02-12 08:52 | PC.NURSE ---
late entry 7am. pt resting quietly with morphine drip running at 4mg/hr. bedside report with Wilfred RN who explains that patient was changed to HAZ TECH overnight [facility] telephone permission from Willie delarosa. Pt is not reposive to light touch or voice, has muscle wasting, cachectic, apnic with irreg RR, ST onmonitor. pupils 3mm. right side lying.
[2021-02-12 08:53] LABS: B Type Natriuretic Peptide 111 pg/mL (<100)
[2021-02-12 08:54] LABS: Lipase 6 U/L (8-78)
--- NOTE | 2021-02-12 08:55 | PC.NURSE ---
Pt tolerated CT and labs/bonilla but showed signs of distress through increased heart rate and slight moan to respirations. 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 additional PRN morphine ordered. THough morphine drip was d/c'd pupils remain 3mm.
[2021-02-12 08:56] LABS: Alanine Aminotransferase 660 U/L (0-40); Albumin Level 2.4 g/dL (3.5-5.0); Alkaline Phosphatase 286 U/L (39-117); Anion Gap 12 (12-20); Aspartate Amino Transferase 410 U/L (5-37); Bilirubin Direct 3.9 mg/dL (0.0-0.5); Bilirubin Total 5.2 mg/dL (0.0-1.0); Blood Urea Nitrogen 25 mg/dL (9-16); Calcium 7.7 mg/dL (8.4-10.2); Carbon Dioxide 29 mmol/L (22-29); Chloride 103 mmol/L (96-108); Estimated Glomerular Filt Rate 53; Glucose Random 90 mg/dL (60-115); Potassium 3.7 mmol/L (3.3-5.1); Sodium 140 mmol/L (135-145); Total Protein 4.9 g/dL (6.5-8.0)
[2021-02-12 09:02] LABS: COVID-19 Test Negative (Negative)
--- NOTE | 2021-02-12 09:43 | P.HPHOSP_ITS ---
History of Present Illness Date of Service: 02/12/21 Chief Complaint: unresponsiveness 75 year old male who was admitted to the hospital from Jan 20 to Jan 26 for work up for weigh loss, anorexia and at that time noted to have a cystic pancreatic mass concerning for maliganancy. He went to [facility] for EUS guided biopsy on Jan 25 and return to the hospital the same day. He was discharged to SNF on Jan 26. He was brought to the ED on this occasion because of increasing confusion, altough the timeline is somehow murky.. as reportedly the nursing staff in the facility are travelers and not familiar with the patient.. there have been reports that he has been lucid up until 4 days, other reports state 2days and s till other say one day. At any event, he was brought to the ED unresponsive, severe hypotension 76/39, and shallow breathing. CT of head show no acute finding. Blood pressure improved with fluid, yet remains unreponsive and upon discussion with his proxy, decision was made to make patient comfort care and thus started on morphine drip. Record from [facility] requested for the nature of the pancreatic mass--not yet available. I was unable to communicate with patient directly as he is completly unresponsive, extremely cachectic, he doesn't have any acute bodily injury. There is no report of fall. Review of Systems Review of Systems: Yes Unobtainable due to mental status (obtunded) [facility] Medical History Alcohol abuse Hemorrhage of anastomosis due to ulcer Surgical History History of partial gastrectomy Social History Household Members: None Housing: Apartment Do you presently have visiting nurse or other home services: Yes (Saturday for 3 hours. visiting Aide) Patient Tobacco Use Status: Current everyday Tobacco user Tobacco use type: Cigarette Second Hand Smoke Exposure: No Substance Use Type: Marijuana Advance Directives: Yes Advance Directives Information Provided: Yes Advance Directives on File: Yes Advance Directives Date on File: 02/01/21 service: Yes Current occupational status: retired Meds Allergies Allergy/AdvReac Type Severity Reaction Status Date / Time Penicillins [PENICILLINS] Allergy Intermediate SWELLING Verified 02/12/21 06:34 lisinopril [LISINOPRIL] Allergy Unknown ANGIOEDEMA Verified 02/12/21 06:34 Active Medications: Current Medications Generic Name Dose Route Start Last Admin Trade Name Lucie PRN Reason Stop Dose Admin Morphine Sulfate 100 mg in 100 mls @ 0 mls/hr 02/12/21 05:00 02/12/21 09:05 IVCONT 0 mg/hr .Q0M LELIA 0 mls/hr Infusion Protocol Per Protocol Morphine Sulfate 100 mg in 100 mls @ 0 mls/hr 02/12/21 09:15 IVCONT .Q0M LELIA Protocol Per Protocol Scopolamine 1.5 mg 02/12/21 09:45 Scopolamine 1.5 Mg Patch.Td.3 TRANSDERMA Q72H [facility] Sodium Chloride 3 ml 02/12/21 16:00 0.9 % Sodium Chloride Flush 3 Ml Syringe IVFLUSH QSHIFT [facility] Home Medications Medication Instructions Recorded Confirmed Last Taken Type acetaminophen 500 mg tablet 1,000 mg PO TID 01/20/21 01/30/21 Unknown History cholecalciferol (vitamin D3) 50 50 mcg PO DAILY 01/20/21 01/30/21 Unknown History mcg (2,000 unit) tablet (Vitamin D3) folic acid 1 mg tablet 1 mg PO DAILY 01/20/21 01/30/21 Unknown History magnesium oxide 420 mg tablet 420 mg PO DAILY 01/20/21 01/30/21 Unknown History mirtazapine 30 mg tablet (Remeron) 30 mg PO BEDTIME 01/20/21 01/30/21 Unknown History nicotine 14 mg/24 hr daily 1 patch TRANSDERMAL DAILY 01/20/21 01/30/21 Unknown History transdermal patch omeprazole 20 mg tablet,delayed 40 mg PO BID 01/20/21 01/30/21 Unknown History release sucralfate 1 gram tablet 1 g PO QID 01/20/21 01/30/21 Unknown History thiamine HCl (vitamin B1) 100 mg 100 mg PO DAILY 01/20/21 01/30/21 Unknown History tablet Physical Exam Vital Signs and Narrative: Vital Signs: Last Vital Signs Pulse 111 H 02/12/21 08:58 Resp 12 02/12/21 08:58 BP 125/82 02/12/21 08:58 Pulse Ox 100 02/12/21 08:58 Constitutional:Unresponsive, obtunded, extremely cachectic HEENT pinpoint pupils Neck Supple, No lymphadenopathy Cardiovascular RRR, No M/R/G, S1 S2, No S3 S4, No pedal edema Respiratory Lungs clear, no respiratory distres Gastrointestinal Non tender, Non-distended Skin No rash, no acute bodily injury Neurological: in coma, PsychologicalL obtunded Results Labs CBC and Chem 7: 02/12/21 08:28 02/12/21 08:28 Labs: Laboratory Results - last 24 hr 02/12/21 02/12/21 02/12/21 08:28 08:28 08:28 MCV 84.3 MCH 29.4 MCHC 34.9 RDW 14.9 Plt Count 206 D MPV 10.1 Immature Gran % (Auto) 0.8 H Neut % (Auto) 82.0 H Lymph % (Auto) 8.8 L [place] % (Auto) 7.8 Eos % (Auto) 0.5 Baso % (Auto) 0.1 Lymph # (Auto) 0.9 L [place] # (Auto) 0.8 Eos # (Auto) 0.1 Baso # (Auto) 0.0 Abs Immat Gran (auto) 0.08 H Absolute Neuts (auto) 8.5 H Absolute Nucleated RBC 0.000 Nucleated RBC % (auto) 0.0 PT 33.7 H D INR 2.9 H Anion Gap 12 Estim Creat Clear Calc TNP Estimated GFR 53 Random Glucose 90 Lactic Acid Calcium 7.7 L Total Bilirubin 5.2 H Direct Bilirubin 3.9 H AST 410 H ALT 660 H Alkaline Phosphatase 286 H D B-Natriuretic Peptide Total Protein 4.9 L Albumin 2.4 L Lipase Urine Color Urine Appearance Urine pH Ur Specific [place] Urine Protein Urine Glucose (UA) Urine Ketones Urine Blood Urine Nitrite Ur Leukocyte Esterase COVID-19 ([facility]) COVID-19 Clin Com 02/12/21 02/12/21 02/12/21 08:28 08:28 08:28 MCV MCH MCHC RDW Plt Count MPV Immature Gran % (Auto) Neut % (Auto) Lymph % (Auto) [place] % (Auto) Eos % (Auto) Baso % (Auto) Lymph # (Auto) [place] # (Auto) Eos # (Auto) Baso # (Auto) Abs Immat Gran (auto) Absolute Neuts (auto) Absolute Nucleated RBC Nucleated RBC % (auto) PT INR Anion Gap Estim Creat Clear Calc Estimated GFR Random Glucose Lactic Acid 1.4 Calcium Total Bilirubin Direct Bilirubin AST ALT Alkaline Phosphatase B-Natriuretic Peptide 111 H Total Protein Albumin Lipase 6 L Urine Color Urine Appearance Urine pH Ur Specific [place] Urine Protein Urine Glucose (UA) Urine Ketones Urine Blood Urine Nitrite Ur Leukocyte Esterase COVID-19 ([facility]) COVID-19 Clin Com 02/12/21 02/12/21 08:40 08:40 MCV MCH MCHC RDW Plt Count MPV Immature Gran % (Auto) Neut % (Auto) Lymph % (Auto) [place] % (Auto) Eos % (Auto) Baso % (Auto) Lymph # (Auto) [place] # (Auto) Eos # (Auto) Baso # (Auto) Abs Immat Gran (auto) Absolute Neuts (auto) Absolute Nucleated RBC Nucleated RBC % (auto) PT INR Anion Gap Estim Creat Clear Calc Estimated GFR Random Glucose Lactic Acid Calcium Total Bilirubin Direct Bilirubin AST ALT Alkaline Phosphatase B-Natriuretic Peptide Total Protein Albumin Lipase Urine Color YELLOW Urine Appearance CLEAR Urine pH 6.0 Ur Specific [place] 1.015 Urine Protein TRACE Urine Glucose (UA) NEG Urine Ketones NEG Urine Blood NEG Urine Nitrite NEG Ur Leukocyte Esterase NEG COVID-19 ([facility]) Negative COVID-19 Clin Com See Note Imaging Radiologist's Impressions: Impressions Head CT 02/12/21 07:55 IMPRESSION: No CT evidence of acute intracranial pathology. Chronic changes as detailed above. Assessment and Plan (1) Altered mental state: Status: Acute (2) Coma: Status: Acute (3) Hypotension: Status: Acute (4) ERIN (acute kidney injury): Status: Acute 75 year old male with pancreatic mass, suspecious for cancer s/p Bx at [facility] path report not yet available for my review, he presented in coma, hypotension and in acute respiratory failure with shallow breath, CT of head unr esponsive, there is NO evidence of sepsis as cause of HypOtension, mild Erin, likely sucumbing from complication of a likely pancreatic cancer. 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 Eduard Guzman [phone] Plan: Continue comfort care, morphine comfort, ativan for anxiety, scopolamine patch for secreation. Discussed with HCP Mr. Guzman and confirmed DNI/DNR status, is imminent. Awaiting pathology report from [facility]. Quality Stroke Does the patient have a stroke diagnosis?: No VTE Prior VTE?: No VTE Risk Level:: Medical - low VTE Device Contraindication: Treatment Not Indicated VTE Drug Contraindication: Treatment Not Indicated
[2021-02-12] MEDS: Scopolamine 1.5 MG PATCH.TD.3 TRANSDERMA (09:59)
--- NOTE | 2021-02-12 10:48 | PC.NURSE ---
remains unaggitated, unresponsive to light physical touch in bed. morphine drip initiated. Pt does not have secretions to suction, noted drop in HR and RR when morphine drip initiated. RR 8-9 HR 100-108
--- NOTE | 2021-02-12 15:33 | PC.NURSE ---
1400 Unresponsive, Morphine infusing 3mg /hr. No distress noted. resp 8. F/c draining dark urine.
[2021-02-13] VITALS (8 sets, daily range): PULSE 101; RESP 5–16; TEMP 36; O2SAT 99
--- NOTE | 2021-02-13 08:50 | MHC.CM.PN ---
HCP CORRECTION: HCP COPY PRINTED AND IN CHART. SOLE HCP IS KUSHAL (NEPHEW) [phone]
--- NOTE | 2021-02-13 08:57 | MHC.CM.PN ---
PATIENT IS IN FROM [facility]. DUE TO PATIENT STATUS, IMM NOT DISCUSSED WITH FAMILY CASE MANAGEMENT TO FOLLOW AND AVAILABLE IF NEEDED.
--- NOTE | 2021-02-13 09:00 | MHC.CM.PN ---
VIA ALLCloudantRIJack Erwin, RAHAT MADISON MADE AWARE THAT PATIENT WILL NOT BE RETURNING
--- NOTE | 2021-02-13 10:53 | P.PNIM_ITS ---
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 Review of Systems Review of Systems: Yes Unobtainable due to mental status Physical Exam Vital Signs: Vital Signs: Last Vital Signs Pulse 100 02/12/21 14:00 Resp 97 H 02/13/21 08:00 BP 119/80 02/12/21 10:43 Pulse Ox 100 02/12/21 10:49 seem comfortable and brething about 6 a minutes, totally unresponsive Objective Data Active Medications Morphine Sulfate () 100 mg in 100 mls @ 0 mls/hr IVCONT .Q0M [facility]; Protocol Last Titration: 02/12/21 14:00 Dose: 3 mg/hr, 3 mls/hr Documented by: WAN Scopolamine (Scopolamine 1.5 Mg Patch.Td.3) 1.5 mg TRANSDERMA Q72H [facility] Last Admin: 02/12/21 09:59 Dose: 1.5 mg Documented by: CHAYO Sodium Chloride (0.9 % Sodium Chloride Flush 3 Ml Syringe) 3 ml IVFLUSH QSHIFT [facility] Last Admin: 02/13/21 09:27 Dose: Not Given Documented by: JOSE LUIS Non-Admin Reason: IV Running Labs CBC & Chem 7: 02/12/21 08:28 02/12/21 08:28 Microbiology Microbiology Results: Microbiology 02/12/21 08:40 Blood Culture - Preliminary Blood - Venous No growth after 24 hours. 02/12/21 08:28 Blood Culture - Preliminary Blood - Venous No growth after 24 hours. Assessment and Plan (1) ERIN (acute kidney injury): Status: Acute (2) Hypotension: Status: Acute (3) Coma: Status: Acute (4) Altered mental state: Status: Acute Assessment and Plan: 75 year old male with pancreatic mass, suspecious for cancer s/p Bx at [facility] path report not yet available for my review, he presented in coma, hypotension and in acute respiratory failure with shallow breath, CT of head unresponsive, there is NO evidence of sepsis as cause of? HypOtension, mild Erin, likely sucumbing from complication of a likely pancreatic cancer. 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 Eduard Guzman [phone] Plan: Continue comfort care, morphine comfort, ativan for anxiety PRN, scopolamine patch for secreation. Discussed with HCP Mr. Guzman and confirmed DNI/DNR status, is imminent. Quality Stroke Does the patient have a stroke diagnosis?: No VTE Prior VTE?: No VTE Risk Level:: Medical - low VTE Device Contraindication: Treatment Not Indicated VTE Drug Contraindication: Treatment Not Indicated
[2021-02-13] MEDS: Morphine Sulfate/NS 100 MG/100 ML PLAST..BAG IVCONT (12:46)
--- NOTE | 2021-02-13 13:00 | PC.NURSE ---
mechanical test engineer bag changed. wasted 30ml. witnessed by Sunshine MORA.
[2021-02-14] VITALS (19 sets, daily range): RESP 4–9
--- NOTE | 2021-02-14 09:45 | P.PNIM_ITS ---
Subjective Subjective Date of Service: 02/14/21 Interval History: f/u comfort measures, remains unresponsive very shallow breath Review of Systems Review of Systems: Yes Unobtainable due to mental status Physical Exam Vital Signs: Vital Signs: Last Vital Signs Temp 96.8 F 02/13/21 23:29 Pulse 101 H 02/13/21 23:29 Resp 6 L 02/14/21 07:26 BP 119/80 02/12/21 10:43 Pulse Ox 99 02/13/21 23:29 comfortable, unresponsive and very shallow breath < 6/min Objective Data Active Medications Morphine Sulfate () 100 mg in 100 mls @ 0 mls/hr IVCONT .Q0M [facility]; Protocol Last Admin: 02/13/21 12:46 Dose: 3 mg/hr, 3 mls/hr Documented by: JOSE LUIS Scopolamine (Scopolamine 1.5 Mg Patch.Td.3) 1.5 mg TRANSDERMA Q72H [facility] Last Admin: 02/12/21 09:59 Dose: 1.5 mg Documented by: CHAYO Sodium Chloride (0.9 % Sodium Chloride Flush 3 Ml Syringe) 3 ml IVFLUSH QSHIFT [facility] Last Admin: 02/14/21 09:37 Dose: Not Given Documented by: JOSE LUIS Non-Admin Reason: IV Running Labs CBC & Chem 7: 02/12/21 08:28 02/12/21 08:28 Microbiology Microbiology Results: Microbiology 02/12/21 08:40 Blood Culture - Preliminary Blood - Venous No growth after 24 hours. 02/12/21 08:28 Blood Culture - Preliminary Blood - Venous No growth after 24 hours. Assessment and Plan (1) ERIN (acute kidney injury): Status: Acute (2) Hypotension: Status: Acute (3) Coma: Status: Acute (4) Altered mental state: Status: Acute Assessment and Plan: 75 year old male with pancreatic mass, suspecious for cancer s/p Bx at [facility] path report not yet available for my review, he presented in coma, hypotension and in acute respiratory failure with shallow breath, CT of head unresponsive, there is NO evidence of sepsis as cause of? HypOtension, mild Erin, likely sucumbing from complication of a likely pancreatic cancer. 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 Eduard Guzman [phone] Plan: Continue comfort care, morphine comfort, ativan for anxiety PRN, scopolamine patch for secreation. Discussed with HCP Mr. Guzman and confirmed DNI/DNR status, is imminent. Dianagosis: Toxic encephalopathy Hypotension ERIN Severe protein calory malnution Acute respiratory failure Quality Stroke Does the patient have a stroke diagnosis?: No VTE Prior VTE?: No VTE Risk Level:: Medical - low VTE Device Contraindication: Treatment Not Indicated VTE Drug Contraindication: Treatment Not Indicated
--- NOTE | 2021-02-14 13:17 | PC.NURSE ---
Patient getting restless and grimacing. Morphine drip titrated up to 4mg/hr. Will reassess.
[2021-02-14] MEDS: Morphine Sulfate/NS 100 MG/100 ML PLAST..BAG IVCONT (17:55)
--- NOTE | 2021-02-14 17:58 | PC.NURSE ---
new bag of morphine hung with aureliano mayes as witness
[2021-02-15] VITALS (16 sets, daily range): BP systolic 126; BP diastolic 76; PULSE 92; RESP 5–17; O2SAT 99
--- NOTE | 2021-02-15 09:10 | PC.NURSE ---
Patient restless and grimacing, morphine drip increased to 5mg/hr. Will continue to monitor.
--- NOTE | 2021-02-15 09:13 | P.PNIM_ITS ---
Subjective Subjective Date of Service: 02/15/21 Interval History: F/u on coma, encephalopathy, remains unconscious, comfortable Review of Systems Review of Systems: Yes Unobtainable due to mental status Physical Exam Vital Signs: Vital Signs: Last Vital Signs Temp 96.8 F 02/13/21 23:29 Pulse 92 02/15/21 07:31 Resp 8 L 02/15/21 09:06 BP 126/76 02/15/21 07:31 Pulse Ox 99 02/15/21 07:31 generally comfortable, unresponsive and very shallow breath 8/min, occasional purposely movement., grunting Objective Data Active Medications Morphine Sulfate () 100 mg in 100 mls @ 0 mls/hr IVCONT .Q0M [facility]; Protocol Last Titration: 02/15/21 09:06 Dose: 5 mg/hr, 5 mls/hr Documented by: RISA Scopolamine (Scopolamine 1.5 Mg Patch.Td.3) 1.5 mg TRANSDERMA Q72H [facility] Last Admin: 02/12/21 09:59 Dose: 1.5 mg Documented by: CHAYO Sodium Chloride (0.9 % Sodium Chloride Flush 3 Ml Syringe) 3 ml IVFLUSH QSHIFT [facility] Last Admin: 02/15/21 08:38 Dose: Not Given Documented by: RISA Non-Admin Reason: IV Running Labs CBC & Chem 7: 02/12/21 08:28 02/12/21 08:28 Microbiology Microbiology Results: Microbiology 02/12/21 08:40 Blood Culture - Preliminary Blood - Venous No growth after 48 hours. 02/12/21 08:28 Blood Culture - Preliminary Blood - Venous No growth after 48 hours. Assessment and Plan (1) ERIN (acute kidney injury): Status: Acute (2) Hypotension: Status: Acute (3) Coma: Status: Acute (4) Altered mental state: Status: Acute Assessment and Plan: 75 year old male with pancreatic mass, suspecious for cancer s/p Bx at [facility] path report not yet available for my review, he presented in coma, hypotension and in acute respiratory failure with shallow breath, CT of head unresponsive, there is NO evidence of sepsis as cause of? HypOtension, mild Erin, likely sucumbing from complication of a likely pancreatic cancer. 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 Eduard Guzman [phone] Plan: Continue comfort care,IV morphine comfor, increase rate to 5mg/hr from 4, IV ativan for anxiety PRN, scopolamine patch for secreation. Discussed with HCP Mr. Guzman and confirmed DNI/DNR status, is imminent. Dianagosis: Toxic encephalopathy Hypotension ERIN Severe protein calory malnution Acute respiratory failure Quality Stroke Does the patient have a stroke diagnosis?: No VTE Prior VTE?: No VTE Risk Level:: Medical - low VTE Device Contraindication: Treatment Not Indicated VTE Drug Contraindication: Treatment Not Indicated
[2021-02-15] MEDS: Scopolamine 1.5 MG PATCH.TD.3 TRANSDERMA (09:36)
--- NOTE | 2021-02-15 10:15 | PC.NURSE ---
Reassessment of patient, restlessness and grimacing has decreased but patient is still moving arms and grimacing. morphine drip increased to 6mg/hr with witness Denisse Nguyen RN. Will continue to monitor.
[2021-02-15] MEDS: Morphine Sulfate/NS 100 MG/100 ML PLAST..BAG 6 MG IVCONT (13:28)
--- NOTE | 2021-02-15 13:32 | PC.NURSE ---
Patient morphine bag was 02/15/21 1330, bad changed 02/15/21 1325 with witness torsten mayes RN. Wasted 29ml of previous bag.
[2021-02-16] MEDS: Morphine Sulfate/NS 100 MG/100 ML PLAST..BAG 6 MG IVCONT ×2 (05:23→22:19)
[2021-02-16] MEDS: 0.9 % Sodium Chloride Flush 3 ML SYRINGE IVFLUSH (07:31)
[2021-02-16 08:00] VITALS: BP 120/75; PULSE 95; RESP 8; TEMP 36.1; O2SAT 99
--- NOTE | 2021-02-16 11:33 | P.PNIM_ITS ---
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 Review of Systems Review of Systems: Yes Unobtainable due to mental condition Physical Exam Vital Signs: Vital Signs: Last Vital Signs Temp 97.0 F 02/16/21 08:00 Pulse 95 02/16/21 08:00 Resp 8 L 02/16/21 08:00 BP 120/75 02/16/21 08:00 Pulse Ox 99 02/16/21 08:00 Const: Other: appears comfortable, not responding to verbal/painful stimuli; decreased RR Objective Data Active Medications Morphine Sulfate () 100 mg in 100 mls @ 0 mls/hr IVCONT .Q0M [facility]; Protocol Last Admin: 02/16/21 05:23 Dose: 6 mg/hr, 6 mls/hr Documented by: ODRISM Scopolamine (Scopolamine 1.5 Mg Patch.Td.3) 1.5 mg TRANSDERMA Q72H [facility] Last Admin: 02/15/21 09:36 Dose: 1.5 mg Documented by: COTEMA Sodium Chloride (0.9 % Sodium Chloride Flush 3 Ml Syringe) 3 ml IVFLUSH QSHIFT [facility] Last Admin: 02/16/21 07:31 Dose: 3 ml Documented by: KODOSOB Labs CBC & Chem 7: 02/12/21 08:28 02/12/21 08:28 Assessment and Plan (1) Coma: Status: Acute Assessment and Plan: 75 year old male with pancreatic mass, suspicious for cancer s/p Bx at [facility] path report not yet available for my review, he presented in coma, hypotension and in acute respiratory failure with shallow breath, CT of head unresponsive, there is NO evidence of sepsis as cause of hypotension, mild Jaquan, likely succumbing from complication of a likely pancreatic cancer. 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 Eduard Guzman [phone] Plan: Continue comfort care,IV morphine, IV ativan for anxiety PRN, scopolamine patch for secretions. Discussed with HCP Mr. Guzman and confirmed DNI/DNR status, is imminent. Dianagosis: Toxic encephalopathy Hypotension JAQUAN Severe protein calorie malnutrition Acute respiratory failure with hypoxia coma Quality Stroke Does the patient have a stroke diagnosis?: No VTE Prior VTE?: No VTE Risk Level:: Medical - low VTE Device Contraindication: Treatment Not Indicated VTE Drug Contraindication: Treatment Not Indicated
[2021-02-16 13:06] VITALS: RESP 6
--- NOTE | 2021-02-16 13:16 | MHC.CM.PN ---
CALL FROM HCP/ISAAC (BENIGNO FATIMA) THIS [employer] JOINTER EXPLAINED THAT EFFORTS MAY BE MADE TO TRANSFER PATIENT TO SNF LEVEL OF CARE UNDER HOSPICE. ISAAC WANTS TO SPEAK WITH PATIENT'S , JORY, AND DAUGHTERS. CALL THEN RECEIVED FROM PATIENT'S OLDEST DAUGHTER, ADOLFO, AND ISAAC. FAMILY DOES NOT WANT PATIENT TO BE MOVED THEY HAVE BEEN INFORMED OF THE PROCESS FOR TRANSFERRING PATIENT, AND STILL DO NOT WANT PATIENT MOVED. ISAAC HAS BEEN MADE AWARE OF PATIENT RIGHT TO APPEAL DISCHARGE AND STATES THAT HE WILL USE THIS RIGHT IF NEEDED. RN AWARE OF PLAN. CM TO RE-ADDRESSS WITH HOSPITALISTS IMM 02/16 IN CHART.
[2021-02-16 15:21] VITALS: RESP 5
--- NOTE | 2021-02-16 22:27 | PC.NURSE ---
witnessed MOLD CARPENTER bag change for RN Luisa,waisted 15ml of Morphine from previous bag
[2021-02-17] VITALS: RESP 4
[2021-02-17 08:00] VITALS: RESP 8
--- NOTE | 2021-02-17 13:32 | HO.PM.IMPN ---
Subjective Subjective Date of Service: 02/17/21 Interval History: Seen and examined this morning Under comfort measures. unable to obtain history or review of systems due to coma. appears comfortable Review of Systems Review of Systems: Yes Unobtainable due to mental condition and Unobtainable due to mental status Physical Exam Vital Signs: Vital Signs: Last Vital Signs Temp 97.0 F 02/16/21 08:00 Pulse 95 02/16/21 08:00 Resp 8 L 02/17/21 08:00 BP 120/75 02/16/21 08:00 Pulse Ox 99 02/16/21 08:00 Const: Other: appears comfortable, not responding to verbal/painful stimuli; decreased RR Objective Data Active Medications Morphine Sulfate () 100 mg in 100 mls @ 0 mls/hr IVCONT .Q0M [facility]; Protocol Scopolamine (Scopolamine 1.5 Mg Patch.Td.3) 1.5 mg TRANSDERMA Q72H [facility] Last Admin: 02/15/21 09:36 Dose: 1.5 mg Documented by: SCOTTYEMA Sodium Chloride (0.9 % Sodium Chloride Flush 3 Ml Syringe) 3 ml IVFLUSH QSHIFT [facility] Last Admin: 02/17/21 08:35 Dose: Not Given Documented by: SELVIN Non-Admin Reason: IV Running Labs CBC & Chem 7: 02/12/21 08:28 02/12/21 08:28 Microbiology Microbiology Results: Microbiology 02/12/21 08:40 Blood Culture - Final Blood - Venous No growth after 5 days. 02/12/21 08:28 Blood Culture - Final Blood - Venous No growth after 5 days. Assessment and Plan (1) Cystic mass of pancreas: Status: Acute (2) Coma: Status: Acute Assessment and Plan: 75 year old male with pancreatic mass, suspicious for cancer s/p Bx at [facility] path report not yet available for my review, he presented in coma, hypotension and in acute respiratory failure with shallow breath, CT of head unresponsive, there is NO evidence of sepsis as cause of hypotension, mild Erin, likely succumbing from complication of a likely pancreatic cancer. 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 Eduard Guzman [phone] Plan: Continue comfort care,IV morphine, IV ativan for anxiety PRN, scopolamine patch for secretions. Discussed with HCP Mr. Guzman and confirmed DNI/DNR status, is imminent. Dianagosis: Toxic encephalopathy Hypotension ERIN Severe protein calorie malnutrition Acute respiratory failure with hypoxia coma Quality Stroke Does the patient have a stroke diagnosis?: No VTE Prior VTE?: No VTE Risk Level:: Medical - low VTE Device Contraindication: Treatment Not Indicated VTE Drug Contraindication: Treatment Not Indicated
[2021-02-17] MEDS: Morphine Sulfate/NS 100 MG/100 ML PLAST..BAG 6 MG IVCONT (15:32)
[2021-02-17 15:35] VITALS: RESP 11
[2021-02-17 23:24] VITALS: RESP 12
[2021-02-18] VITALS (8 sets, daily range): RESP 5–8; O2SAT 93
[2021-02-18] MEDS: 0.9 % Sodium Chloride Flush 3 ML SYRINGE IVFLUSH ×2 (00:05→11:13)
--- NOTE | 2021-02-18 09:23 | P.PNIM_ITS ---
Subjective Subjective Date of Service: 02/18/21 Interval History: remains unresponsive, but moving arms around, Review of Systems Review of Systems: Yes Unobtainable due to mental status Physical Exam Vital Signs: Vital Signs: Last Vital Signs Temp 97.0 F 02/16/21 08:00 Pulse 95 02/16/21 08:00 Resp 12 02/17/21 23:24 BP 120/75 02/16/21 08:00 Pulse Ox 93 02/18/21 08:00 Unresponsive, breathing, rest of exam not medically necesssary Objective Data Active Medications Morphine Sulfate () 100 mg in 100 mls @ 0 mls/hr IVCONT .Q0M [facility]; Protocol Last Admin: 02/17/21 15:32 Dose: 6 mg/hr, 6 mls/hr Documented by: SELVIN Scopolamine (Scopolamine 1.5 Mg Patch.Td.3) 1.5 mg TRANSDERMA Q72H [facility] Last Admin: 02/15/21 09:36 Dose: 1.5 mg Documented by: COTEMA Sodium Chloride (0.9 % Sodium Chloride Flush 3 Ml Syringe) 3 ml IVFLUSH QSHIFT [facility] Last Admin: 02/18/21 00:05 Dose: 3 ml Documented by: FAMILIA Labs CBC & Chem 7: 02/12/21 08:28 02/12/21 08:28 Microbiology Microbiology Results: Microbiology 02/12/21 08:40 Blood Culture - Final Blood - Venous No growth after 5 days. 02/12/21 08:28 Blood Culture - Final Blood - Venous No growth after 5 days. Assessment and Plan (1) Cystic mass of pancreas: Status: Acute (2) Coma: Status: Acute Assessment and Plan: 75 year old male with pancreatic mass, suspicious for cancer s/p Bx at [facility] path report not yet available for my review, he presented in coma, hypotension and in acute respiratory failure with shallow breath, CT of head unresponsive, there is NO evidence of sepsis as cause of hypotension, mild Erin, likely succumbing from complication of a likely pancreatic cancer. 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 Eduard Guzman [phone] Plan: Continue comfort care,I V morphine (increase to 7 for comfort as moving around more), IV ativan for anxiety PRN, scopolamine patch for secretions. Discussed with HCP Mr. Guzman and confirmed DNI/DNR status, is imminent. Dianagosis: Toxic encephalopathy Hypotension ERIN Severe protein calorie malnutrition Acute respiratory failure with hypoxia coma Quality Stroke Does the patient have a stroke diagnosis?: No VTE Prior VTE?: No VTE Risk Level:: Medical - low VTE Device Contraindication: Treatment Not Indicated VTE Drug Contraindication: Treatment Not Indicated
[2021-02-18] MEDS: Morphine Sulfate/NS 100 MG/100 ML PLAST..BAG 7 MG IVCONT (11:05)
[2021-02-18] MEDS: Scopolamine 1.5 MG PATCH.TD.3 TRANSDERMA (11:09)
--- NOTE | 2021-02-18 11:11 | PC.NURSE ---
Pt becomes slightly restless with staff in the room lifting extremities. Moprphine pump increased to 7mg/hr from 6
--- NOTE | 2021-02-18 16:28 | PC.NURSE ---
patient sleeping ,appear comfortable
--- NOTE | 2021-02-18 19:47 | PC.NURSE ---
patient sleeping,repositioned,appear comfortable
[2021-02-19] VITALS (16 sets, daily range): BP systolic 106; BP diastolic 70; PULSE 98; RESP 5–12; TEMP 36.8; O2SAT 88
[2021-02-19] MEDS: Morphine Sulfate/NS 100 MG/100 ML PLAST..BAG 7 MG IVCONT ×2 (01:38→14:20)
--- NOTE | 2021-02-19 03:30 | PC.NURSE ---
Patient shows no signs of discomfort, has been resting motionless. Moved arms upon reposistioning. Breathing easy, nonlabored with periods of apnea. 5-7 respirations per minute. Nguyen draining tea colored urine. Morphine drip at 7mg/hr.
--- NOTE | 2021-02-19 08:42 | HO.PM.IMPN ---
Subjective Subjective Date of Service: 02/19/21 Interval History: remains unresponsive, shallow breath Review of Systems Review of Systems: Yes Unobtainable due to mental status Physical Exam Vital Signs: Vital Signs: Last Vital Signs Temp 97.0 F 02/16/21 08:00 Pulse 95 02/16/21 08:00 Resp 6 L 02/19/21 07:52 BP 120/75 02/16/21 08:00 Pulse Ox 93 02/18/21 15:37 Unresponsiblem, visible rising and falling of chest haas, occasional moves arms, rest of exam not medically necessary Objective Data Active Medications Morphine Sulfate () 100 mg in 100 mls @ 0 mls/hr IVCONT .Q0M [facility]; Protocol Last Titration: 02/19/21 07:51 Dose: 7 mg/hr, 7 mls/hr Documented by: DEDRA Scopolamine (Scopolamine 1.5 Mg Patch.Td.3) 1.5 mg TRANSDERMA Q72H [facility] Last Admin: 02/18/21 11:09 Dose: 1.5 mg Documented by: EMY Sodium Chloride (0.9 % Sodium Chloride Flush 3 Ml Syringe) 3 ml IVFLUSH QSHIFT [facility] Last Admin: 02/19/21 07:48 Dose: Not Given Documented by: DEDRA Non-Admin Reason: IV Running Labs CBC & Chem 7: 02/12/21 08:28 02/12/21 08:28 Assessment and Plan (1) Cystic mass of pancreas: Status: Acute (2) Coma: Status: Acute Assessment and Plan: 75 year old male with pancreatic mass, suspicious for cancer s/p Bx at [facility] path report not yet available for my review, he presented in coma, hypotension and in acute respiratory failure with shallow breath, CT of head unresponsive, there is NO evidence of sepsis as cause of hypotension, mild Erin, likely succumbing from complication of a likely pancreatic cancer. 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 Eduard Morenosue [phone] Plan: Continue comfort care, Adjust IV morphine as needed for maximum comfort, IV ativan for anxiety PRN, scopolamine patch for secretions. Discussed with HCP Alma Delia Cesared and confirmed DNI/DNR status, is imminent. Dianagosis: Toxic encephalopathy Hypotension ERIN Severe protein calorie malnutrition Acute respiratory failure with hypoxia coma Quality Stroke Does the patient have a stroke diagnosis?: No VTE Prior VTE?: No VTE Risk Level:: Medical - low VTE Device Contraindication: Treatment Not Indicated VTE Drug Contraindication: Treatment Not Indicated
[2021-02-20] MEDS: Morphine Sulfate/NS 100 MG/100 ML PLAST..BAG 7 MG IVCONT ×2 (04:40→19:25)
[2021-02-20 07:55] VITALS: RESP 8
--- NOTE | 2021-02-20 11:08 | PM.IMPN ---
Progress Note: A&P (1) Pancreatic mass: Status: Acute (2) Coma: Status: Acute Assessment and Plan: 75 year old male with pancreatic mass, suspicious for cancer s/p Bx at [facility] path report not yet available for my review, he presented in coma, hypotension and in acute respiratory failure with shallow breath, CT of head unresponsive, there is NO evidence of sepsis as cause of hypotension, mild Jaquan, likely succumbing from complication of a likely pancreatic cancer. 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 Eduard Guzman [phone] Plan: Continue comfort care, Adjust IV morphine as needed for maximum comfort,? IV ativan for anxiety PRN, scopolamine patch for secretions. Discussed with HCP Mr. Guzman and confirmed DNI/DNR status, is imminent. Diagnosis Toxic encephalopathy Hypotension JAQUAN Severe protein calorie malnutrition Acute respiratory failure with hypoxia coma Subjective Subjective Date of Service: 02/20/21 Review of Systems Follow up LIGHT BULB REPLACER remains unresponsive Physical Exam Vital Signs: Vital Signs: Last Vital Signs Temp 98.2 F 02/19/21 15:34 Pulse 98 02/19/21 15:34 Resp 8 L 02/20/21 07:55 BP 106/70 02/19/21 15:34 Pulse Ox 88 L 02/19/21 15:34 No verbalization lung sounds normal expansion, low RR Objective Data Current Medications Generic Name Dose Route Start Last Admin Trade Name Freq PRN Reason Stop Dose Admin Morphine Sulfate 100 mg in 100 mls @ 0 mls/hr 02/17/21 22:00 02/20/21 04:40 IVCONT 7 mg/hr .Q0M LELIA 7 mls/hr Administration Protocol Per Protocol Scopolamine 1.5 mg 02/12/21 09:45 02/18/21 11:09 Scopolamine 1.5 Mg Patch.Td.3 TRANSDERMA 1.5 mg Q72H LELIA Administration Sodium Chloride 3 ml 02/12/21 16:00 02/20/21 07:30 0.9 % Sodium Chloride Flush 3 Ml Syringe IVFLUSH Not Given QSHIFT LELIA Labs CBC & Chem 7: 02/12/21 08:28 02/12/21 08:28 Microbiology Microbiology Results: Microbiology 02/12/21 08:40 Blood - Venous Blood Culture - Final No growth after 5 days. 02/12/21 08:28 Blood - Venous Blood Culture - Final No growth after 5 days. Quality Stroke Does the patient have a stroke diagnosis?: No VTE Prior VTE?: No VTE Risk Level:: Medical - low VTE Device Contraindication: Treatment Not Indicated VTE Drug Contraindication: Treatment Not Indicated
[2021-02-20 12:00] VITALS: RESP 4
[2021-02-20 15:34] VITALS: BP 72/48; PULSE 87; RESP 12; TEMP 36.6; O2SAT 92
[2021-02-20 23:36] VITALS: RESP 4
[2021-02-21 08:00] VITALS: RESP 8
[2021-02-21] MEDS: Scopolamine 1.5 MG PATCH.TD.3 TRANSDERMA (09:44)
[2021-02-21] MEDS: Morphine Sulfate/NS 100 MG/100 ML PLAST..BAG 7 MG IVCONT (11:57)
--- NOTE | 2021-02-21 12:13 | PM.IMPN ---
Progress Note: A&P (1) Pancreatic mass: Status: Acute Assessment and Plan: 75 year old male with pancreatic mass, suspicious for cancer s/p Bx at [facility] path report not yet available for my review, he presented in coma, hypotension and in acute respiratory failure with shallow breath, CT of head unresponsive, there is No evidence of sepsis as cause of hypotension, mild Jaquan, likely succumbing from complication of a likely pancreatic cancer. 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 Eduard Guzman [phone] Plan: Continue comfort care, Adjust IV morphine as needed for maximum comfort,? IV ativan for anxiety PRN, scopolamine patch for secretions. Discussed with HCP Mr. Guzman and confirmed DNI/DNR status, is imminent. Diagnosis Toxic encephalopathy Hypotension JAQUAN Severe protein calorie malnutrition Acute respiratory failure with hypoxia coma Attending Dr. 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 Still holding on not responsive some moaning and moving around of his right arm Repositioned Physical Exam Vital Signs: Vital Signs: Last Vital Signs Temp 97.8 F 02/20/21 15:34 Pulse 87 02/20/21 15:34 Resp 8 L 02/21/21 08:00 BP 72/48 L 02/20/21 15:34 Pulse Ox 92 02/20/21 15:34 Appearing in no acute distress lung sounds prolonged breaths heart regular rate rhythm soft abdomen neuro unresponsive Objective Data Current Medications Generic Name Dose Route Start Last Admin Trade Name Freq PRN Reason Stop Dose Admin Morphine Sulfate 100 mg in 100 mls @ 0 mls/hr 02/17/21 22:00 02/21/21 11:57 IVCONT 7 mg/hr .Q0M LELIA 7 mls/hr Administration Protocol Per Protocol Scopolamine 1.5 mg 02/12/21 09:45 02/21/21 09:44 Scopolamine 1.5 Mg Patch.Td.3 TRANSDERMA 1.5 mg Q72H LELIA Administration Sodium Chloride 3 ml 02/12/21 16:00 02/21/21 09:34 0.9 % Sodium Chloride Flush 3 Ml Syringe IVFLUSH Not Given QSHIFT [facility] Labs CBC & Chem 7: 02/12/21 08:28 02/12/21 08:28 Microbiology Microbiology Results: Microbiology 02/12/21 08:40 Blood - Venous Blood Culture - Final No growth after 5 days. 02/12/21 08:28 Blood - Venous Blood Culture - Final No growth after 5 days. Quality Stroke Does the patient have a stroke diagnosis?: No VTE Prior VTE?: No VTE Risk Level:: Medical - low VTE Device Contraindication: Treatment Not Indicated VTE Drug Contraindication: Treatment Not Indicated
--- NOTE | 2021-02-21 12:58 | MHC.CM.PN ---
STEP-SON YAHAIRA IN ROOM TO VISIT.
[2021-02-21 15:47] VITALS: RESP 5
[2021-02-21 16:00] VITALS: RESP 5
[2021-02-22] VITALS: RESP 15
[2021-02-22 00:44] VITALS: RESP 15
[2021-02-22] MEDS: Morphine Sulfate/NS 100 MG/100 ML PLAST..BAG 7 MG IVCONT (02:07)
--- NOTE | 2021-02-22 09:34 | PM.DS ---
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 He went to [facility] for EUS guided biopsy on Jan 25 and return to the hospital the same day. He was discharged to SNF on Jan 26. He was brought to the ED on this occasion because of increasing confusion, altough the timeline is somehow murky.. as reportedly the nursing staff in the facility are travelers and not familiar with the patient.. there have been reports that he has been lucid up until 4 days, other reports state 2days and still other say one day. At any event, he was brought to the ED unresponsive, severe hypotension 76/39,? and shallow breathing. CT of head show no acute finding. Blood pressure improved with fluid, yet remains unreponsive and upon discussion with his proxy, decision was made to make patient comfort care and thus started on morphine drip. Record from [facility] requested for the nature of the pancreatic mass--not yet available. I was unable to communicate with patient directly as he is completly unresponsive, extremely cachectic, he doesn't have any acute bodily injury. There is no report of fall . Suspected pancreatic cancer. Patient was made NEEDLE [employer] on admission. Placed on continuous IV morphine, scopalamine patch, IV ativan for anxiety PRN. was pronounced at 08:05. Family members notified. Diagnosis Toxic encephalopathy Hypotension ERIN Severe protein calorie malnutrition Acute respiratory failure with hypoxia coma Time Spent with Patient Time attestation: Total time spent providing and/or coordinating discharge services: Discharge coordination time: Less than 30 minutes Quality: Stroke Does the patient have a stroke diagnosis?: No Physical Exam Vital Signs: Vital Signs: Last Vital Signs Temp 97.8 F 02/20/21 15:34 Pulse 87 02/20/21 15:34 Resp 15 02/22/21 00:44 BP 72/48 L 02/20/21 15:34 Pulse Ox 92 02/20/21 15:34 Discharge Plan Discharge Date/Time: 02/22/21 08:05 Anticipated Discharge Date/Time: 02/22/21 09:33 Patient Disposition: Referrals: Jovana Aguero MD [Primary Care Provider] - 1 Week Discharge Medications: No Action nicotine 14 mg/24 hr Patch 24 Hour 1 patch TRANSDERMAL DAILY RF: 0 magnesium oxide 420 mg Tablet 420 mg PO DAILY RF: 0 sucralfate 1 gram Tablet 1 g PO QID RF: 0 thiamine HCl (vitamin B1) 100 mg Tablet 100 mg PO DAILY RF: 0 acetaminophen 500 mg Tablet 1,000 mg PO TID RF: 0 mirtazapine [Remeron] 30 mg Tablet 30 mg PO BEDTIME RF: 0 folic acid 1 mg Tablet 1 mg PO DAILY RF: 0 omeprazole 20 mg Tablet,Delayed Release (Dr/Ec) 40 mg PO BID RF: 0 cholecalciferol (vitamin D3) [Vitamin D3] 50 mcg (2,000 unit) Tablet 50 mcg PO DAILY RF: 0
--- NOTE | 2021-02-22 09:54 | MHC.CM.PN ---
FOLLOWING DIRECTION FROM [employer]SING [employer], SISTER MARGRET ([phone]) HAS BEEN INFORMED THAT PATIENT WILL REMAIN ON THE FLOOR UNTIL NOON IF FAMILY IS TO VISIT AFTER THIS TIME, THAT THEY ASK FOR THE NURSING [employer] UPON ARRIVAL. RN AND UNIT MADE AWARE
== END 2021-02-22 11:00 | disposition expired | DRG 951 ==
LOC: HO.ED 08:36 → HO.EDOVER 09:51 → HO.S3 10:28
PROVIDERS: Emergency Medicine; Admitting Provider Internal Medicine; Emergency Provider Emergency Medicine Emergency Medical Services; PCP Family Medicine; Visit Provider Nurse Practitioner Acute Care
DX: Z51.5 Encounter for palliative care (principal); R40.20 Unspecified coma; J96.01 Acute respiratory failure with hypoxia; G92 Toxic encephalopathy; E43 Unspecified severe protein-calorie malnutrition; C25.9 Malignant neoplasm of pancreas, unspecified; N17.9 Acute kidney failure, unspecified; I95.9 Hypotension, unspecified; Z20.822 Contact with and (suspected) exposure to COVID-19; F17.210 Nicotine dependence, cigarettes, uncomplicated; Z71.6 Tobacco abuse counseling; Z88.0 Allergy status to penicillin; Z79.899 Other long term (current) drug therapy
CPT/HCPCS: 36415; 70450; 80048; 80076; 81003; 83605; 83690; 83880; 85025; 85610; 87040; 87635; 99284; 99285; J2060; J2270